=== PATIENT | female | born 2000 | race Caucasian/White ===

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

== ENCOUNTER 2022-05-08 12:40 | Emergency (ER) | payer OTHER, SELFPAY ==
--- NOTE | 2022-05-08 13:06 | ED.URI ---
HPI - URI/Sore Throat General Chief Complaint: Upper Respiratory Infection Stated Complaint: sorethroat Time Seen by Provider: 05/08/22 12:55 Source: patient Mode of arrival: ambulatory Limitations: no limitations History of Present Illness HPI Narrative: 22 yo F presents with c/o sore throat, bodyaches and chills for 2 days. Concerned she has strep throat. Denies N/V/D. No CP or SOB. 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 all systems reviewed and negative except as noted above. Related Data Allergies Allergy/AdvReac Type Severity Reaction Status Date / Time No Known Allergies Allergy Severe Verified 05/08/22 13:28 Review of Systems Review of Systems: CONSTITUTIONAL: Denies fever. Reports chills, or sweats. EYES: Denies visual changes, redness, or discharge. ENT: Denies rhinorrhea, congestion . Reports sore throat. Denies otalgia. CARDIOVASCULAR: Denies chest pain, palpitations, or edema. RESPIRATORY: Denies cough or dyspnea. GASTROINTESTINAL: Denies abdominal pain, nausea, vomiting, or diarrhea. GENITOURINARY: Denies dysuria or hematuria. SKIN: Denies rash or itching. MUSCULOSKELETAL: Denies back pain, joint pain. Reports myalgia. NEUROLOGIC: Denies headache, numbness, or weakness. PSYCHIATRIC: Denies anxiety or depression. All other systems reviewed are negative, except as documented in HPI. PMFSH Past Medical History Medical History Asthma Dental caries Surgical History Surgical History H/O foot surgery History of placement of ear tubes Family History Family History Other No significant family history Social History Social History Smoking status: Never smoker Alcohol intake: never Substance use: never Living arrangements: with family Gender identity (if verbalized by the patient): Female Comments At time of signature, agree with nursing past medical, surgical, social and family history. There is no relevant family history pertinent to the presenting complaint. Exam Narrative: GENERAL: This is a well-nourished, well-developed patient, in no apparent distress. HEAD: normocephalic, atraumatic. EYES: PERRL. Sclera clear/white. Vision is grossly intact. EARS: External ears normal, auditory canals clear and without drainage, TMs normal without perforation. Hearing grossly intact. NOSE: External nose normal with no obvious nasal discharge, nares without redness, no rhinorrhea. THROAT: Mucous membranes moist, erythematous and swollen. NECK: Neck supple, non-tender without lymphadenopathy, masses or thyromegaly. CARDIOVASCULAR: Regular rate and rhythm without murmurs, gallops, or rubs. RESPIRATORY: Clear to auscultation. Breath sounds equal bilaterally. No wheezes, rales, or rhonchi. SKIN: warm, Dry, intact with no suspicious lesions or rash, good texture and turgor. NEURO: awake, alert, and oriented to person, place and time. There were no obvious focal neurologic abnormalities. EXTREMITIES: No joint tenderness, effusion, or edema noted. Course Course Level of Care: Express Care Visit Vital Signs Vital signs: Vital Signs Temperature 37.7 C H 05/08/22 13:16 Pulse Rate 91 05/08/22 13:16 Respiratory Rate 18 05/08/22 13:16 Blood Pressure 116/70 05/08/22 13:16 Pulse Oximetry 100 05/08/22 13:16 Oxygen Delivery Room Air 05/08/22 13:16 Temperature 37.7 C H 05/08/22 13:16 Pulse Rate 91 05/08/22 13:16 Respiratory Rate 18 05/08/22 13:16 Blood Pressure 116/70 05/08/22 13:16 Pulse Oximetry 100 05/08/22 13:16 Oxygen Delivery Room Air 05/08/22 13:16 Reviewed MDM - URI/Sore Throat MDM Narrative Medical decision making narrative: Patient is aware of diagnosis, understands and agrees to treatment plan. Anticipatory guidance given. Patient agrees t
[2022-05-08 13:16] VITALS: BP 116/70; PULSE 91; RESP 18; TEMP 37.7; O2SAT 100
== END 2022-05-08 13:20 | disposition home or self-care (01) ==
PROVIDERS: Emergency Provider Nurse Practitioner Family; PCP Pediatrics Adolescent Medicine
DX: J02.0 Streptococcal pharyngitis (principal); J45.909 Unspecified asthma, uncomplicated
CPT/HCPCS: 87880; 99213; G0463

== ENCOUNTER 2022-05-30 13:38 | Emergency (ER) | payer OTHER, SELFPAY ==
[2022-05-30 13:45] VITALS: BP 112/74; PULSE 83; RESP 16; TEMP 36.7; O2SAT 99
--- NOTE | 2022-05-30 13:50 | ED.URI ---
HPI - URI/Sore Throat General Chief Complaint: Upper Respiratory Infection Stated Complaint: Sore Throat Time Seen by Provider: 05/30/22 13:50 Source: patient Mode of arrival: ambulatory Limitations: no limitations History of Present Illness HPI Narrative: 22-year-old female presents with sore throat, fatigue, chills starting yesterday. Patient is concerned that she has strep throat again. Was seen May 08 took 10 days of amoxicillin. Reports that she gets strep throat approximately 5 to 6 times a year. Denies nausea vomiting diarrhea. No chest pain or shortness breath. All systems reviewed and negative except as noted above. Related Data Allergies Allergy/AdvReac Type Severity Reaction Status Date / Time No Known Allergies Allergy Severe Verified 05/30/22 13:53 Review of Systems Review of Systems: CONSTITUTIONAL: Denies fever. Reports chills, fatigue and sweats. EYES: Denies visual changes, redness, or discharge. ENT: Denies rhinorrhea, congestion . Reports sore throat. Denies otalgia. CARDIOVASCULAR: Denies chest pain, palpitations, or edema. RESPIRATORY: Denies cough or dyspnea. GASTROINTESTINAL: Denies abdominal pain, nausea, vomiting, or diarrhea. GENITOURINARY: Denies dysuria or hematuria. SKIN: Denies rash or itching. MUSCULOSKELETAL: Denies back pain, joint pain, or myalgia. NEUROLOGIC: Denies headache, numbness, or weakness. PSYCHIATRIC: Denies anxiety or depression. All other systems reviewed are negative, except as documented in HPI. FORMERLY [facility], [facility]–1983 Past Medical History Medical History Asthma Dental caries Surgical History Surgical History H/O foot surgery History of placement of ear tubes Family History Family History Other No significant family history Social History Social History Smoking status: Never smoker Alcohol intake: never Substance use: never Living arrangements: with family Gender identity (if verbalized by the patient): Female Comments At time of signature, agree with nursing past medical, surgical, social and family history. There is no relevant family history pertinent to the presenting complaint. Exam Narrative: GENERAL: This is a well-nourished, well-developed patient, in no apparent distress. HEAD: normocephalic, atraumatic. EYES: PERRL. Sclera clear/white. Vision is grossly intact. EARS: External ears normal, auditory canals clear and without drainage, TMs normal without perforation. Hearing grossly intact. NOSE: External nose normal with no obvious nasal discharge, nares without redness, no rhinorrhea. THROAT: Mucous membranes moist, erythematous cyst who posterior pharynx with swelling. No exudates. NECK: Neck supple, non-tender without lymphadenopathy, masses or thyromegaly. CARDIOVASCULAR: Regular rate and rhythm without murmurs, gallops, or rubs. RESPIRATORY: Clear to auscultation. Breath sounds equal bilaterally. No wheezes, rales, or rhonchi. SKIN: warm, Dry, intact with no suspicious lesions or rash, good texture and turgor. NEURO: awake, alert, and oriented to person, place and time. There were no obvious focal neurologic abnormalities. EXTREMITIES: No joint tenderness, effusion, or edema noted. Course Course Level of Care: Express Care Visit Vital Signs Vital signs: Vital Signs Temperature 36.7 C 05/30/22 13:45 Pulse Rate 83 05/30/22 13:45 Respiratory Rate 16 05/30/22 13:45 Blood Pressure 112/74 05/30/22 13:45 Pulse Oximetry 99 05/30/22 13:45 Oxygen Delivery Room Air 05/30/22 13:45 Temperature 36.7 C 05/30/22 13:45 Pulse Rate 83 05/30/22 13:45 Respiratory Rate 16 05/30/22 13:45 Blood Pressure 112/74 05/30/22 13:45 Pulse Oximetry 99 05/30/22 13:45 Oxygen Delivery Room Air
== END 2022-05-30 14:05 | disposition home or self-care (01) ==
PROVIDERS: Emergency Provider Nurse Practitioner Family; PCP Pediatrics Adolescent Medicine
DX: J02.0 Streptococcal pharyngitis (principal); J45.909 Unspecified asthma, uncomplicated
CPT/HCPCS: 87880; 99213; G0463

== ENCOUNTER 2022-06-22 16:47 | Emergency (ER) | payer OTHER, SELFPAY ==
[2022-06-22] VITALS (28 sets, daily range): BP systolic 100–143; BP diastolic 57–92; PULSE 59–80; RESP 15–16; TEMP 37.2; O2SAT 96–100
--- NOTE | ~2022-06-22 | CT_ITS ---
EXAMINATION: CT brain wo con DATE: 06/22/2022 17:28 INDICATION: Dizziness. Headache. TECHNIQUE: Computed tomography (CT) of the head was performed without intravenous contrast. The mA wa s adjusted according to patient size. Iterative reconstruction technique was employed. The dose-lengt h product was 529.67 mGy-cm. COMPARISON: None FINDINGS: There is no intracranial hemorrhage, acute infarction, or abnormal intracranial mass lesion . The ventricles are normal in size. There is mucosal thickening in the paranasal sinuses. The orbits are normal. The mastoid air cells are normal. IMPRESSION: 1. Normal brain. Reviewed, dictated and finalized at location E. IMPRESSION: 1. Normal brain.
--- NOTE | 2022-06-22 17:11 | PC.NURSE ---
Patient ambulatory to restroom and from the restroom back to ED room 4 without difficulty.
--- NOTE | 2022-06-22 17:15 | ED.DIZZY ---
HPI - Dizziness General Chief Complaint: Dizziness Stated Complaint: lightheaded/dizzy Time Seen by Provider: 06/22/22 16:58 Source: patient Mode of arrival: ambulatory Limitations: no limitations History of Present Illness HPI Narrative: Patient is a 22 y/o female who presents to the ED with c/o dizziness/lightheadedness. Patient reports having dizziness, described as feeling lightheaded and as though the room is spinning intermittently for the last 2 days. She states sx's are worse with changing positions, walking, and driving. She c/o difficulty focusing which presents as occasionally blurry vision, frontal FERRIS, nausea, and ear fullness. She feels as though she is dehydrated. She has not taken anything for her FERRIS. Denies syncope, focal weakness, vomiting, abdominal pain, neck pain, fevers, CP, SOB. Related Data Allergies Allergy/AdvReac Type Severity Reaction Status Date / Time No Known Allergies Allergy Severe Verified 05/30/22 13:53 Review of Systems Review of Systems: CONSTITUTIONAL: Denies fever, chills, or sweats. EYES: See HPI. CARDIOVASCULAR: Denies chest pain. RESPIRATORY: Denies dyspnea. GASTROINTESTINAL: See HPI. MUSCULOSKELETAL: Denies back pain, neck pain. NEUROLOGIC: See HPI. All systems reviewed & are unremarkable except as noted in HPI and below PMFSH Past Medical History Medical History Asthma Dental caries Surgical History Surgical History H/O foot surgery History of placement of ear tubes Family History Family History Other No significant family history Social History Social History Smoking status: Never smoker Alcohol intake: never Substance use: never Living arrangements: with family Gender identity (if verbalized by the patient): Female Exam Narrative: GENERAL: Well appearing, well-nourished, non-toxic, in no acute distress. HEAD: Normocephalic, atraumatic. EYES: PERRL/EOMI, conjunctivae clear bilaterally. No nystagmus. EARS: Some fluid behind L TM, no erythema or bulging of TM, no swelling/erythema of EAC. R TM somewhat obscured by cerumen in canal. No evidence of TM erythema/bulging. NECK: Supple. No adenopathy, no masses. No meningeal signs. RESPIRATORY: Airway patent, respirations nonlabored. Clear to auscultation bilaterally, no rales, rhonchi, wheezing. CARDIOVASCULAR: Regular rate and rhythm without murmurs, rubs, or gallops. Radial pulses 2+ and equal bilaterally. MUSCULOSKELETAL: Moves all extremities. Strength/ROM intact without gross deformities. SKIN: Warm, dry, normal color. No rashes. NEURO: A&O X3. Speech clear. Follows commands. CN II-XII intact. Sensation grossly intact. Steady gait. No ataxic movements. Strength 5/5 in upper and lower extremities bilaterally. Tobm-di-hfce and mziksj-vi-oktq testing intact bilaterally. No pronator drift. PSYCHIATRIC: Appropriate mood and affect. Normal interaction. Course Vital Signs Vital signs: Vital Signs Temperature 98.9 F 06/22/22 16:49 Pulse Rate 80 06/22/22 16:49 Respiratory Rate 15 06/22/22 16:49 Blood Pressure 128/77 06/22/22 16:49 Pulse Oximetry 100 06/22/22 16:49 Oxygen Delivery Room Air 06/22/22 16:49 Temperature 98.9 F 06/22/22 16:49 Pulse Rate 68 06/22/22 19:43 Respiratory Rate 16 06/22/22 19:43 Blood Pressure 117/71 06/22/22 19:43 Pulse Oximetry 99 06/22/22 19:43 Oxygen Delivery Room Air 06/22/22 16:49 MDM - Dizziness MDM Narrative Medical decision making narrative: Patient presented to ED with c/o dizziness/lightheadedness X 2d. Vague neurologic sx's. VSS upon arrival. Patient neurologically intact upon exam. No focal deficits. No significant orthostatic hypotension. Fluids, meclizine, tylenol, zofran given. CT b
[2022-06-22 18:00] LABS: Basophils Absolute Auto 0.1 K/mm3 (0.0-0.1); Basophils Percent Auto 0.7 % (0.2-1.2); Eosinophils Absolute Auto 0.2 K/mm3 (0-0.3); Eosinophils Percent Auto 2.2 % (0-4.4); Hematocrit 37.8 % (37.0-47.0); Hemoglobin 12.7 g/dL (12.0-15.0); Immature Granulocyte Absolute 0.03 K/mm3 (0.00-0.031); Immature Granulocyte Percent A 0.3 % (0-0.5); Lymphocytes Absolute Auto 2.23 K/mm3 (0.9-3.2); Lymphocytes Percent Auto 23.7 % (18.3-44.2); Mean Corpuscular HGB Conc 33.6 g/dl (32-36); Mean Corpuscular Hemoglobin 29.8 pg (26-34); Mean Corpuscular Volume 88.7 fl (80-100); Mean Platelet Volume 9.5 fl (7.4-10.4); Monocytes Absolute Auto 0.6 K/mm3 (0.1-0.6); Monocytes Percent Auto 6.4 % (2.6-8.5); Neutrophils Absolute Auto 6.3 K/mm3 (1.3-6.7); Neutrophils Percent Auto 66.7 % (45.5-73.1); Platelet Count Result 239 k/mm3 (150-375); Red Blood Count 4.26 M/mm3 (4.2-5.4); Red Cell Distribution Width 12.2 % (11.5-14.5); White Blood Count 9.4 K/mm3 (4.5-10.0)
[2022-06-22 18:02] LABS: Appearance Urine Clear (Clear); Bilirubin Urine Negative (Negative); Blood Urine Negative (Negative); Color Urine Yellow (Yellow); Glucose Urine UA Negative (Negative); Ketones Urine Negative (Negative); Leukocyte Esterase Ur Negative LEU/UL (Negative); Nitrate Urine Negative (Negative); Protein Urine Negative (Negative); Specific Grav Ur 1.017 (1.001-1.035); Urobilinogen Urine 0.2 mg/dL (<2.0)
[2022-06-22 18:05] LABS: Add Urine Microscopic? NO
[2022-06-22] MEDS: MECLIZINE HCL 25 MG TABLET PO (18:09)
[2022-06-22] MEDS: SODIUM CHLORIDE 0.9% IV 1,000 ML 999 ML IV CONT (18:09)
[2022-06-22] MEDS: ACETAMINOPHEN 500 MG TABLET 1000 MG PO (18:09)
[2022-06-22] MEDS: ONDANSETRON INJ 4 MG/2 ML VIAL IV PUSH (18:09)
[2022-06-22 18:11] LABS: Alanine Aminotransferase 23 U/L (6-35); Albumin Level 4.6 g/dL (3.5-5.1); Alkaline Phosphatase 68 U/L (38-126); Anion Gap 9 mmol/L (8-16); Aspartate Amino Transferase 28 U/L (14-36); Bilirubin,Total 0.5 mg/dL (0.2-1.3); Blood Urea Nitrogen 8 mg/dL (7-17); Carbon Dioxide 26 mmol/L (22-30); Chloride 105 mmol/L (98-107); Estimated CRCL calculation 119 ml/min; Estimated Glomerular Filt Rate > 60; Glucose 84 mg/dL (65-110); Potassium 3.8 mmol/L (3.4-5.0); Sodium 140 mmol/L (137-145)
== END 2022-06-22 19:45 | disposition home or self-care (01) ==
PROVIDERS: Emergency Provider Physician Assistant; PCP Pediatrics Adolescent Medicine
DX: R42 Dizziness and giddiness (principal); R51.9 Headache, unspecified; J45.909 Unspecified asthma, uncomplicated
CPT/HCPCS: 36415; 70450; 80053; 81003; 85025; 96361; 96374; 99284; A9270; J2405; J7030

== ENCOUNTER 2022-07-06 12:07 | Emergency (ER) | payer OTHER, SELFPAY ==
[2022-07-06 12:13] VITALS: BP 125/69; PULSE 60; RESP 16; TEMP 36.6; O2SAT 99
--- NOTE | 2022-07-06 12:46 | ED.GENADULT ---
HPI - General Adult General Chief complaint: Allergic Reaction Stated complaint: Allergic Reaction Time Seen by Provider: 07/06/22 12:38 Source: patient and RN notes reviewed Mode of arrival: ambulatory Limitations: no limitations History of Present Illness HPI narrative: Patient presents today with a rash to her bilateral eyelids and right cheek that she noticed this morning. She believes it is due to her shampoo and conditioner. Last week she used it for the 1st time and had some itching her face, so she stopped using it for 3-4 days. She used it again for the 2nd time yesterday and now has a rash to her face. She does not have a rash or itching to her scalp. Denies shortness of breath, difficulty swallowing, swelling to her lips or tongue, scratchiness to her throat. She has not tried any gfsa-rpv-brzzcry treatment prior to arrival. Related Data Home Medications Medication Instructions Recorded Confirmed No Home Medications 07/06/22 07/06/22 Allergies Allergy/AdvReac Type Severity Reaction Status Date / Time No Known Allergies Allergy Severe Verified 07/06/22 12:20 Review of Systems Review of Systems: CONSTITUTIONAL: Denies body aches, fever, chills, or sweats. EYES: Denies visual changes, redness, or discharge. ENT: Denies rhinorrhea, congestion, sore throat, or otalgia. CARDIOVASCULAR: Denies chest pain, palpitations, or edema. RESPIRATORY: Denies cough or dyspnea. GASTROINTESTINAL: Denies abdominal pain, nausea, vomiting, or diarrhea. GENITOURINARY: Denies dysuria or hematuria. SKIN: + pruritic rash to face MUSCULOSKELETAL: Denies back pain, joint pain, or myalgia. NEUROLOGIC: Denies headache, numbness, tingling, or weakness. PSYCH: Denies depression or anxiety. [facility] Past Medical History Medical History Asthma Dental caries Surgical History Surgical History H/O foot surgery History of placement of ear tubes Family History Family History Other No significant family history Social History Social History Smoking status: Never smoker Alcohol intake: never Substance use: never Living arrangements: with family Gender identity (if verbalized by the patient): Female Comments At time of signature, I have reviewed and agree with nursing past medical, surgical, social and family history unless otherwise noted. Please see nursing chart for further information. There is no relevant family history pertinent to the presenting complaint Exam Narrative: GENERAL: Well-appearing, well-nourished, and in no acute distress. HEAD: Normocephalic, atraumatic. EYES: EOMI. PERRL. No redness or drainage. Conjunctivae normal. ENT: Mucous membranes pink and moist. Nares clear. No rhinorrhea. TMs normal bilaterally. Throat normal. Uvula midline. NECK: Normal AROM. CHEST: No respiratory distress. Clear to auscultation. HEART: Regular rate and rhythm. No murmur appreciated. Normal peripheral pulses. EXTREMITIES: Normal range of motion. No edema. SKIN: Warm, dry.. Capillary refill normal. Normal skin turgor. Few large hives to the right cheek and 1 hive to each upper eyelid, causing some swelling. NEURO: No focal deficits. Alert and oriented x3. Gait steady. PSYCH: Normal affect. No signs of depression or anxiety. Course Course Level of Care: Express Care Visit Vital Signs Vital signs: Vital Signs Temperature 97.8 F 07/06/22 12:13 Pulse Rate 60 07/06/22 12:13 Respiratory Rate 16 07/06/22 12:13 Blood Pressure 125/69 07/06/22 12:13 Pulse Oximetry 99 07/06/22 12:13 Oxygen Delivery Room Air 07/06/22 12:13 Temperature 97.8 F 07/06/22 12:13 Pulse Rate 60 07/06/22 12:13 Respiratory Rate 16 07/06/22 12:13 Blood P
== END 2022-07-06 13:15 | disposition home or self-care (01) ==
PROVIDERS: Emergency Provider Nurse Practitioner; PCP Pediatrics Adolescent Medicine
DX: L50.9 Urticaria, unspecified (principal); J45.909 Unspecified asthma, uncomplicated
CPT/HCPCS: 96372; 99213; G0463; J1100

== ENCOUNTER 2022-08-01 19:57 | Emergency (ER) | payer OTHER, SELFPAY ==
--- NOTE | 2022-08-01 20:08 | ED.FEMALEGU ---
HPI - Female Genitourinary General Chief complaint: Urogenital-Female Stated complaint: uti symptoms Source: patient and RN notes reviewed History of Present Illness HPI Narrative: 22 yo F Presents to urgent care stating she knows she has a UTI. Pt states she has been having burning with urination and urinary urgency and frequency x 3 days. Pt states she was working out [employer] and she had to leave her workout multiple times b/c she had to urinate. Pt reports some nausea the last couple days. Denies any vomiting. Pt reports some SOB when asked; stating she is noticing she has to take a deep breath at work sometimes when talking on the phone. Pt reports hx of asthma. Denies any coughing, congestion, fevers, chills, abdominal pain, chest pain, or back pain. Pt did take AZO today for her symptoms. Related Data Allergies Allergy/AdvReac Type Severity Reaction Status Date / Time No Known Allergies Allergy Severe Verified 08/01/22 20:15 Review of Systems Review of Systems: Pertinent positives and pertinent negatives per HPI. PMFSH Past Medical History Medical History Asthma Dental caries Surgical History Surgical History H/O foot surgery History of placement of ear tubes Family History Family History Other No significant family history Social History Social History Smoking status: Never smoker Alcohol intake: never Substance use: never Living arrangements: with family Gender identity (if verbalized by the patient): Female Comments At the time of my signature, I reviewed and agree with the nursing past medical, surgical, social, and family history. There is no relevant family history pertinent to the patient complaint. Exam Narrative: GENERAL: This is a well-nourished, well-developed patient, in no apparent distress. HEAD: normocephalic, atraumatic. EYES: Sclera clear/white. Vision is grossly intact. EARS: External ears normal, auditory canals clear and without drainage, TMs normal without perforation. Hearing grossly intact. NOSE: External nose normal with no obvious nasal discharge, nares without redness, no rhinorrhea. THROAT: Mucous membranes moist, posterior pharynx clear. NECK: Neck supple, non-tender without lymphadenopathy, masses or thyromegaly. CARDIOVASCULAR: Regular rate and rhythm without murmurs, gallops, or rubs. RESPIRATORY: Clear to auscultation. Breath sounds equal bilaterally. No wheezes, rales, or rhonchi. GASTROINTESTINAL: Abdomen soft, non-tender, nondistended. Bowel sounds are active. No hepato-splenomegaly, or palpable masses. No guarding. SKIN: warm, intact with no suspicious lesions or rash, good texture and turgor. NEURO: awake, alert, and oriented to person, place and time. There were no obvious focal neurologic abnormalities. EXTREMITIES: No clubbing, cyanosis, or edema. No joint tenderness, effusion, or edema noted. BACK: Nontender without deformity or crepitus. No flank tenderness. Course Course Level of Care: Express Care Visit Vital Signs Vital signs: Reviewed MDM - Female Genitourinary MDM Narrative Medical decision making narrative: We will send a urine culture off to the lab; if the culture identifies an organism that the prescribed antibiotic will not treat, you will receive a phone call from an urgent care staff member and an appropriate antibiotic will be prescribed. -Your symptoms should begin to improve within a day of starting antibiotics. But you should finish all the antibiotic pills you get. Otherwise your infection might come back. -Also recommend: drink more fluid. It might help flush out germs, and it does no harm -Tylenol/ibuprofen as needed for pain -Follow-up with your primary care provider for urine recheck
[2022-08-01 20:09] VITALS: BP 133/65; PULSE 106; RESP 18; TEMP 36.8; O2SAT 99
== END 2022-08-01 20:18 | disposition home or self-care (01) ==
PROVIDERS: Emergency Provider Nurse Practitioner Family; PCP Pediatrics Adolescent Medicine
DX: N39.0 Urinary tract infection, site not specified (principal); J45.909 Unspecified asthma, uncomplicated
CPT/HCPCS: 81003; 87077; 87086; 87186; 99213; G0463

== ENCOUNTER 2022-08-23 16:52 | Emergency (ER) | payer OTHER, SELFPAY ==
[2022-08-23 17:12] VITALS: BP 140/74; PULSE 72; RESP 18; TEMP 37; O2SAT 100
--- NOTE | 2022-08-23 17:37 | ED.FEMALEGU ---
HPI - Female Genitourinary General Chief complaint: Urogenital-Female Stated complaint: vaginal discharge and itching Time Seen by Provider: 08/23/22 17:28 Source: patient and RN notes reviewed Mode of arrival: ambulatory Limitations: no limitations History of Present Illness HPI Narrative: Patient presents today with a 2 day history of external vulvar itching, mild white vaginal discharge, and mild dysuria. States that last weekend she spent [place] the [employer] she was wearing a wet swimming suit most of the time. Denies frequency, urgency, hematuria. States she did have unprotected intercourse with a new partner 2 days ago. Has an appointment with her OBGYN next week. Related Data Allergies Allergy/AdvReac Type Severity Reaction Status Date / Time No Known Allergies Allergy Severe Verified 08/23/22 17:21 Review of Systems Review of Systems: CONSTITUTIONAL: Denies body aches, fever, chills, or sweats. EYES: Denies visual changes, redness, or discharge. ENT: Denies rhinorrhea, congestion, sore throat, or otalgia. CARDIOVASCULAR: Denies chest pain, palpitations, or edema. RESPIRATORY: Denies cough or dyspnea. GASTROINTESTINAL: Denies abdominal pain, nausea, vomiting, or diarrhea. GENITOURINARY: Denies hematuria.+ vulvar itching, white discharge, dysuria SKIN: Denies rash, itching, or wounds. MUSCULOSKELETAL: Denies back pain, joint pain, or myalgia. NEUROLOGIC: Denies headache, numbness, tingling, or weakness. PSYCH: Denies depression or anxiety. PMFSH Past Medical History Medical History Asthma Dental caries Surgical History Surgical History H/O foot surgery History of placement of ear tubes Family History Family History Other No significant family history Social History Social History Smoking status: Never smoker Alcohol intake: never Substance use: never Living arrangements: with family Gender identity (if verbalized by the patient): Female Comments At time of signature, I have reviewed and agree with nursing past medical, surgical, social and family history unless otherwise noted. Please see nursing chart for further information. There is no relevant family history pertinent to the presenting complaint Exam Narrative: GENERAL: Well-appearing, well-nourished, and in no acute distress. HEAD: Normocephalic, atraumatic. EYES: EOMI. No redness or drainage. Conjunctivae normal. ENT: Mucous membranes pink and moist. NECK: Normal AROM. CHEST: No respiratory distress. : deferred EXTREMITIES: Normal range of motion. No edema. SKIN: Warm, dry, no rash. Capillary refill normal. Normal skin turgor. NEURO: No focal deficits. Alert and oriented x3. Gait steady. PSYCH: Normal affect. No signs of depression or anxiety. Course Course Level of Care: Express Care Visit Vital Signs Vital signs: Vital Signs Temperature 98.6 F 08/23/22 17:12 Pulse Rate 72 08/23/22 17:12 Respiratory Rate 18 08/23/22 17:12 Blood Pressure 140/74 08/23/22 17:12 Pulse Oximetry 100 08/23/22 17:12 Oxygen Delivery Room Air 08/23/22 17:12 Temperature 98.6 F 08/23/22 17:12 Pulse Rate 72 08/23/22 17:12 Respiratory Rate 18 08/23/22 17:12 Blood Pressure 140/74 08/23/22 17:12 Pulse Oximetry 100 08/23/22 17:12 Oxygen Delivery Room Air 08/23/22 17:12 Reviewed. Pt has been instructed to follow up with her PCP regarding her elevated blood pressure today. MDM - Female Genitourinary MDM Narrative Medical decision making narrative: Due to patient's symptoms, I will treat her for a vaginal yeast infection with Diflucan. Considered testing for gonorrhea, chlamydia, and Trichomonas, but as patient just had unprotected intercourse a few da
== END 2022-08-23 17:46 | disposition home or self-care (01) ==
PROVIDERS: Emergency Provider Nurse Practitioner; PCP Pediatrics Adolescent Medicine
DX: B37.31 Acute candidiasis of vulva and vagina (principal); J45.909 Unspecified asthma, uncomplicated
CPT/HCPCS: 99213; G0463

== ENCOUNTER 2022-11-04 18:35 | Emergency (ER) | payer OTHER, SELFPAY ==
[2022-11-04 18:46] VITALS: BP 124/66; PULSE 67; RESP 18; TEMP 36.5; O2SAT 97
--- NOTE | 2022-11-04 18:48 | ED.SKABFB ---
HPI - Skin/Abscess/Foreign Bdy General Chief complaint: Skin/Abscess/Foreign Body Stated complaint: Rash Time Seen by Provider: 11/04/22 18:48 Source: patient Mode of arrival: ambulatory Limitations: no limitations History of Present Illness HPI narrative: 22-year-old female presents with itchy lesion to left dillard and right thigh. Reports lesion to left dillard started last week. Noticed lesion to right thigh this morning. States she has never had a rash similar to this. All systems reviewed and negative except as noted above. Related Data Allergies Allergy/AdvReac Type Severity Reaction Status Date / Time No Known Allergies Allergy Severe Verified 11/04/22 18:37 Review of Systems Review of Systems: CONSTITUTIONAL: Denies fever, chills, or sweats. EYES: Denies visual changes, redness, or discharge. ENT: Denies rhinorrhea, congestion, sore throat, or otalgia. CARDIOVASCULAR: Denies chest pain, palpitations, or edema. RESPIRATORY: Denies cough or dyspnea. GASTROINTESTINAL: Denies abdominal pain, nausea, vomiting, or diarrhea. GENITOURINARY: Denies dysuria or hematuria. SKIN: reports lesion to L dillard and R thigh. MUSCULOSKELETAL: Denies back pain, joint pain, or myalgia. NEUROLOGIC: Denies headache, numbness, or weakness. PSYCHIATRIC: Denies anxiety or depression. All other systems reviewed are negative, except as documented in HPI. [facility] Past Medical History Medical History Asthma Dental caries Surgical History Surgical History H/O foot surgery History of placement of ear tubes Family History Family History Other No significant family history Social History Social History Smoking status: Never smoker Alcohol intake: never Substance use: never Living arrangements: with family Gender identity (if verbalized by the patient): Female Comments At time of signature, agree with nursing past medical, surgical, social and family history. There is no relevant family history pertinent to the presenting complaint. Exam Narrative: GENERAL: This is a well-nourished, well-developed patient, in no apparent distress. HEAD: normocephalic, atraumatic. EYES: PERRL. Sclera clear/white. Vision is grossly intact. EARS: External ears normal NOSE: External nose normal NECK: Neck supple, non-tender without lymphadenopathy, masses or thyromegaly. CARDIOVASCULAR: Regular rate and rhythm without murmurs, gallops, or rubs. RESPIRATORY: Clear to auscultation. Breath sounds equal bilaterally. No wheezes, rales, or rhonchi. SKIN: warm, Dry, intact with no suspicious rash, good texture and turgor. circular lesion with erythematous raised border and central clearing to R anterior thigh and L dillard. NEURO: awake, alert, and oriented to person, place and time. There were no obvious focal neurologic abnormalities. EXTREMITIES: No joint tenderness, effusion, or edema noted. Course Course Level of Care: Express Care Visit Vital Signs Vital signs: Vital Signs Oxygen Delivery Room Air 11/04/22 18:45 Temperature 36.5 C 11/04/22 18:46 Pulse Rate 67 11/04/22 18:46 Respiratory Rate 18 11/04/22 18:46 Blood Pressure 124/66 11/04/22 18:46 Pulse Oximetry 97 11/04/22 18:46 Oxygen Delivery Room Air 11/04/22 18:46 Reviewed MDM - Skin/Abscess/Foreign Bdy MDM Narrative Medical decision making narrative: Patient is aware of diagnosis, understands and agrees to treatment plan. Anticipatory guidance given. Patient agrees to follow-up as directed and is aware of reasons to seek care at the emergency department. Portions of this record may have been created with voice recognition software Discharge Plan Discharge Clinical Impression: Fungal s
== END 2022-11-04 19:04 | disposition home or self-care (01) ==
PROVIDERS: Emergency Provider Nurse Practitioner Family; PCP Pediatrics Adolescent Medicine
DX: B36.9 Superficial mycosis, unspecified (principal); J45.909 Unspecified asthma, uncomplicated
CPT/HCPCS: 99213; G0463

== ENCOUNTER 2023-07-03 15:54 | Emergency (ER) | payer OTHER, SELFPAY ==
[2023-07-03 16:05] VITALS: BP 118/52; PULSE 64; RESP 18; TEMP 36.6; O2SAT 97
[2023-07-03 16:06] VITALS: BP 118/52; PULSE 64; RESP 18; TEMP 36.6; O2SAT 97
--- NOTE | 2023-07-03 16:18 | ED.URI ---
HPI - URI/Sore Throat General Chief Complaint: Upper Respiratory Infection Stated Complaint: Cold symptoms Time Seen by Provider: 07/03/23 16:13 Source: patient and RN notes reviewed Mode of arrival: ambulatory Limitations: no limitations History of Present Illness HPI Narrative: Patient presents today complaining of a 2-3 day history of sore throat and bilateral ear pain and itching. Reports she started with some fatigue today. Denies congestion, rhinorrhea, fever. Currently rates her pain 7/10 and has tried no medication for symptoms prior to arrival. States she drank a smoothie prior to coming to urgent care today and this has helped with her sore throat. Related Data Home Medications Medication Instructions Recorded Confirmed No Home Medications 07/03/23 07/03/23 Allergies Allergy/AdvReac Type Severity Reaction Status Date / Time No Known Allergies Allergy Severe Verified 07/03/23 16:06 Review of Systems Review of Systems: CONSTITUTIONAL: Denies body aches, fever, chills, or sweats. EYES: Denies visual changes, redness, or discharge. ENT: Denies rhinorrhea, congestion.+ sore throat, ear pain CARDIOVASCULAR: Denies chest pain, palpitations, or edema. RESPIRATORY: Denies cough or dyspnea. GASTROINTESTINAL: Denies abdominal pain, nausea, vomiting, or diarrhea. GENITOURINARY: Denies dysuria or hematuria. SKIN: Denies rash, itching, or wounds. MUSCULOSKELETAL: Denies back pain, joint pain, or myalgia. NEUROLOGIC: Denies headache, numbness, tingling, or weakness. PSYCH: Denies depression or anxiety. [facility] Past Medical History Medical History Asthma Dental caries Surgical History Surgical History H/O foot surgery History of placement of ear tubes Family History Family History Other No significant family history Social History Social History Smoking status: Never smoker Alcohol intake: never Substance use: never Living arrangements: with family Gender identity (if verbalized by the patient): Female Comments At time of signature, I have reviewed and agree with nursing past medical, surgical, social and family history unless otherwise noted. Please see nursing chart for further information. There is no relevant family history pertinent to the presenting complaint Exam Narrative: GENERAL: Well-appearing, well-nourished, and in no acute distress. HEAD: Normocephalic, atraumatic. EYES: EOMI. No redness or drainage. Conjunctivae normal. ENT: Mucous membranes pink and moist. Nares clear. No rhinorrhea. TMs normal bilaterally. Throat mildly erythematous without edema or exudate. Uvula midline. NECK: Normal AROM. Supple. No lymphadenopathy. CHEST: No respiratory distress. Clear to auscultation. HEART: Regular rate and rhythm. No murmur appreciated. EXTREMITIES: Normal range of motion. No edema. SKIN: Warm, dry, no rash. Capillary refill normal. Normal skin turgor. NEURO: No focal deficits. Alert and oriented x3. Gait steady. PSYCH: Normal affect. No signs of depression or anxiety. Course Course Level of Care: Express Care Visit Vital Signs Vital signs: Vital Signs Temperature 97.9 F 07/03/23 16:05 Pulse Rate 64 07/03/23 16:05 Respiratory Rate 18 07/03/23 16:05 Blood Pressure 118/52 L 07/03/23 16:05 Pulse Oximetry 97 07/03/23 16:05 Oxygen Delivery Room Air 07/03/23 16:05 Temperature 97.9 F 07/03/23 16:06 Pulse Rate 64 07/03/23 16:06 Respiratory Rate 18 07/03/23 16:06 Blood Pressure 118/52 L 07/03/23 16:06 Pulse Oximetry 97 07/03/23 16:06 Oxygen Delivery Room Air 07/03/23 16:06 Reviewed MDM - URI/Sore Throat MDM Narrative Medical decision making narrative: Rapid strep negative
== END 2023-07-03 16:26 | disposition home or self-care (01) ==
PROVIDERS: Emergency Provider Nurse Practitioner; Referring Provider Emergency Medicine
DX: J02.9 Acute pharyngitis, unspecified (principal); J45.909 Unspecified asthma, uncomplicated
CPT/HCPCS: 87081; 87880; 99213; G0463

== ENCOUNTER 2023-07-13 10:25 | Emergency (ER) | payer OTHER, SELFPAY ==
[2023-07-13 10:33] VITALS: BP 120/80; PULSE 67; RESP 18; TEMP 36.3; O2SAT 100
--- NOTE | 2023-07-13 10:48 | ED.FEMALEGU ---
HPI - Female Genitourinary General Chief complaint: Urogenital-Female Stated complaint: vag discharge Time Seen by Provider: 07/13/23 10:41 Source: patient and RN notes reviewed Mode of arrival: ambulatory Limitations: no limitations History of Present Illness HPI Narrative: Patient presents today complaining of a 3 day history of vaginal itching and odor, vaginal discharge, and dyspareunia. She last had unprotected intercourse approximately 1 month ago. Does have history of chlamydia and believe she may have it again, although she has not been notified but any partner that they have tested positive. Related Data Allergies Allergy/AdvReac Type Severity Reaction Status Date / Time No Known Allergies Allergy Severe Verified 07/13/23 10:37 Review of Systems Review of Systems: CONSTITUTIONAL: Denies body aches, fever, chills, or sweats. EYES: Denies visual changes, redness, or discharge. ENT: Denies rhinorrhea, congestion, sore throat, or otalgia. CARDIOVASCULAR: Denies chest pain, palpitations, or edema. RESPIRATORY: Denies cough or dyspnea. GASTROINTESTINAL: Denies abdominal pain, nausea, vomiting, or diarrhea. GENITOURINARY: + vaginal discharge, odor, dyspareunia. SKIN: Denies rash, itching, or wounds. MUSCULOSKELETAL: Denies back pain, joint pain, or myalgia. NEUROLOGIC: Denies headache, numbness, tingling, or weakness. PSYCH: Denies depression or anxiety. [facility] Past Medical History Medical History Asthma Dental caries Surgical History Surgical History H/O foot surgery History of placement of ear tubes Family History Family History Other No significant family history Social History Social History Smoking status: Never smoker Alcohol intake: never Substance use: never Living arrangements: with family Gender identity (if verbalized by the patient): Female Comments At time of signature, I have reviewed and agree with nursing past medical, surgical, social and family history unless otherwise noted. Please see nursing chart for further information. There is no relevant family history pertinent to the presenting complaint Exam Narrative: GENERAL: Well-appearing, well-nourished, and in no acute distress. HEAD: Normocephalic, atraumatic. EYES: EOMI. No redness or drainage. Conjunctivae normal. ENT: Mucous membranes pink and moist. NECK: Normal AROM. CHEST: No respiratory distress. : Exam deferred by patient EXTREMITIES: Normal range of motion. No edema. SKIN: Warm, dry, no rash. Capillary refill normal. Normal skin turgor. NEURO: No focal deficits. Alert and oriented x3. Gait steady. PSYCH: Normal affect. No signs of depression or anxiety. Course Course Level of Care: Express Care Visit Vital Signs Vital signs: Vital Signs Temperature 97.3 F L 07/13/23 10:33 Pulse Rate 67 07/13/23 10:33 Respiratory Rate 18 07/13/23 10:33 Blood Pressure 120/80 07/13/23 10:33 Pulse Oximetry 100 07/13/23 10:33 Oxygen Delivery Room Air 07/13/23 10:33 Temperature 97.3 F L 07/13/23 10:33 Pulse Rate 67 07/13/23 10:33 Respiratory Rate 18 07/13/23 10:33 Blood Pressure 120/80 07/13/23 10:33 Pulse Oximetry 100 07/13/23 10:33 Oxygen Delivery Room Air 07/13/23 10:33 Reviewed MDM - Female Genitourinary MDM Narrative Medical decision making narrative: Patient will be tested for gonorrhea and chlamydia and received prescription for doxycycline. She has received a dose of Rocephin here today. She declines testing for Trichomonas. States she will follow-up with her PCP. Anticipatory guidance given. Differential Diagnosis Differential diagnosis: Likely trichomoniasis, cervicitis, vaginitis and other (Gonorrhea, c
[2023-07-13] MEDS: cefTRIAXone 500 MG, LIDOCAINE HCL 1% LOCAL INJ 1 ML IM (11:00)
[2023-07-13 18:41] LABS: Chlamydia trachomatis NOT DETECTED (NOT DETECTE); Neisseria gonorrhoeae PCR NOT DETECTED (NOT DETECTE)
== END 2023-07-13 11:07 | disposition home or self-care (01) ==
PROVIDERS: Emergency Provider Nurse Practitioner
DX: N89.8 Other specified noninflammatory disorders of vagina (principal); N94.10 Unspecified dyspareunia; J45.909 Unspecified asthma, uncomplicated
CPT/HCPCS: 87491; 87591; 96372; 99214; G0463; J0696

== ENCOUNTER 2023-09-07 03:45 | Emergency (ER) | payer OTHER, SELFPAY ==
[2023-09-07 03:55] VITALS: BP 123/71; PULSE 79; RESP 14; TEMP 36.7; O2SAT 99
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
[2023-09-07] MEDS: ACETAMINOPHEN 500 MG TABLET 1000 MG PO (04:46)
== END 2023-09-07 04:50 | disposition home or self-care (01) ==
LOC: ANHED 04:36
PROVIDERS: Emergency Provider Emergency Medicine
DX: S09.90XA Unspecified injury of head, initial encounter (principal); V49.40XA Driver injured in collision with unspecified motor vehicles in traffic accident, initial encounter
CPT/HCPCS: 99283; A9270

== ENCOUNTER 2024-11-29 18:31 | Emergency (ER) | payer BC, SELFPAY ==
--- NOTE | 2024-11-29 18:33 | ED.URI ---
HPI - URI/Sore Throat General Chief Complaint: Upper Respiratory Infection Stated Complaint: URI Time Seen by Provider: 11/29/24 18:33 Source: patient Mode of arrival: ambulatory Limitations: no limitations History of Present Illness HPI Narrative: Vikki is a 24 year old female patient presenting to the clinic today with c/o cough and nasal congestion x4 days. She reports coughing up clear phlegm. History of asthma. Has been using her air supra inhaler that has been helping. States she does feel short of breath. No fevers, chills, body aches. Has not taking any medications to treat her symptoms Related Data Home Medications ?Medication ?Instructions ?Recorded ?Confirmed ?Last Taken ?Type albuterol 90 mcg-budesonide 80 2 inh inhalation TID PRN shortness 11/29/24 Unknown History mcg/actuation HFA aerosol inhaler of breath (Airsupra) Allergies Allergy/AdvReac Type Severity Reaction Status Date / Time No Known Allergies Allergy Severe Verified 11/29/24 18:45 Review of Systems Review of Systems: Pertinent positives per HPI. Patient denies any fever, chills, rash, headache, visual changes, dizziness, chest pain, palpitations, nausea, vomiting, diarrhea, constipation, abdominal pain, or any urinary issues. [facility] Past Medical History Medical History Asthma Dental caries Surgical History Surgical History History of placement of ear tubes H/O foot surgery Family History Family History Other No significant family history Social History Social History Smoking status: Never smoker Alcohol intake: never Substance use: never Living arrangements: with family Gender identity (if verbalized by the patient): Female Comments At the time of my signature, I reviewed and agree with the nursing past medical, surgical, social, and family history. There is no relevant family history pertinent to the patient complaint. Exam Narrative: General: Well-developed, well nourished, in no apparent distress Head: Normocephalic, atraumatic Eyes: Pupils equally round and reactive to light bilaterally, EOM intact, sclera and conjunctive clear, no discharge, lids normal Ears: TMs intact and clear, ear canals clear, no drainage, grossly hearing normal. Nose: Nares patent, clear nasal discharge, mild inflammation, no sinus tenderness. Mouth: Oral pharynx without lesions or masses, good dentition, MMM. Postnasal drip Neck: Supple, trachea midline, no enlargement of anterior or posterior cervical nodes, no thyroid masses or goiter palpable. Cardio: Regular rate and rhythm, s1 and s2 normal, no murmur appreciated. Resp: Clear to auscultation bilaterally, no rhonchi, rales, wheezing or rubs Course Course Emergency Course: Portions of this record may have been created with voice recognition software. Level of Care: Express Care Visit Vital Signs Vital signs: Vital Signs Temperature 36.8 C 11/29/24 18:41 Pulse Rate 73 11/29/24 18:41 Respiratory Rate 16 11/29/24 18:41 Blood Pressure 139/82 11/29/24 18:41 Pulse Oximetry 98 11/29/24 18:41 Temperature 36.8 C 11/29/24 18:41 Pulse Rate 73 11/29/24 18:41 Respiratory Rate 16 11/29/24 18:41 Blood Pressure 139/82 11/29/24 18:41 Pulse Oximetry 98 11/29/24 18:41 Vital signs reviewed MDM - URI/Sore Throat MDM Narrative Medical decision making narrative: At the time of visit patient is resting comfortably on the exam table. Patient appears to be nontoxic. C/o cough and nasal congestion x4 days. She reports coughing up clear phlegm. History of asthma. Has been using her air supra inhaler that has been helping. States she does feel short of breath. No fevers, chills, body aches. Has not taking any medications to treat her symptoms. On exam patient has bilateral TMs intact and clear, clear nasal drainage, mild anterior turbinate inflammation, postnasal drip, lung sounds clear, heart rates regular rate and rhythm. Patient is able speak in full sentences. No retractions Plan: I suspect patient has allergic rhinitis/cough. Patient does have history of asthma. Prescription for fluticasone, montelukast, and a refill of her air supra inhaler was sent to the pharmacy. Supportive measures were discussed with the patient and they voiced understanding discharge instructions and agrees to treatment plan. Return precautions reviewed Differential Diagnosis Differential diagnosis: Likely upper respiratory infection, otitis media, sinusitis, viral infection, bronchitis, influenza, pharyngitis and other (COVID) Discharge Plan Discharge Clinical Impression: Allergic rhinitis Qualifiers: Allergic rhinitis trigger: unspecified Allergic rhinitis seasonality: non-seasonal Qualified Code(s): J30.89 - Other allergic rhinitis Cough Qualifiers: Cough type: acute Qualified Code(s): R05.1 - Acute cough Patient Disposition: Home Condition: Stable Instructions: Antibiotic Form, Asthma (ED), Acute Cough (ED) Additional Instructions: Lung sounds are clear and there is no sign of bacterial infection in the clinic today. Oxygen saturations 98% on room air. Take prescription medications only as prescribed- fluticasone, montelukast, and air supra inhaler Cool-mist humidifier at the bedside Increase fluids and stay well hydrated May take Tylenol or motrin as directed on bottle for pain/fever May apply Vicks vapor rub to chest to open sinuses Sinus rinses for congestion Cepacol spray, cough drops, throat lozenges, warm tea with honey/lemon, gargle salt water to soothe throat BRAT diet for diarrhea Clear liquids x 24 hours then advance as tolerated for nausea/vomiting Go to the ED if you develop a worsening in your condition- high fever not controlled by Tylenol or Motrin, dehydration, weakness, lethargy, shortness of breath, or chest pain. Follow up with your PCP in 3-5 days if symptoms persist. Patient Language: Kyrgyz Prescriptions: New Airsupra 90-80 mcg/actuation HFA aerosol inhaler 2 inh inhalation QID 30 Days Qty: 10.7 0RF Rx Instructions: may use up to 6 doses per day (12 inhalations) fluticasone propionate 50 mcg/actuation spray,suspension 2 spray intranasal DAILY 30 Days Qty: 16 0RF Rx Instructions: administer into each nostril montelukast 10 mg tablet 10 mg PO HS 30 Days Qty: 30 0RF No Action Airsupra 90-80 mcg/actuation HFA aerosol inhaler 2 inh inhalation TID PRN (Reason: shortness of breath) acetaminophen 500 mg tablet 1,000 mg PO TID PRN (Reason: adolph) 7 Days Qty: 42 0RF ibuprofen 800 mg tablet 800 mg PO TID PRN (Reason: pain) 7 Days Qty: 21 0RF methocarbamol 750 mg tablet 1,500 mg PO TID Qty: 35 0RF Follow-up/Referrals: UNKNOWN,DOCTOR [Primary Care Provider] Time of Disposition: 18:49 Quality NIHSS Nursing Documentation ED NIHSS nursing documentation: reviewed/agree
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
--- OUTSIDE RECORDS SUMMARY | 2024-11-29 18:38 | XMS_ITS | Encounter Summary ---
Author Organization [facility] Address [facility] [place] [address] Care Team Providers Care Waste Salvager Name Role Phone Lizzy Young NP Primary Care Provider [phone]- [phone] Encounter Details Date Type Department Care Team (Late st Contact Info) Description 08/30/2024 My[facility] [address] [place] [address] Lizzy Young, IRWIN [address] [place], [place] [id number] test results Social History Tobacco Use Types Packs/Day Years Used Date Smoking Tobacco: Never Smokeless Tobacco: Never Alcohol Use Standard Drinks/Week Comments Yes 0 (1 standard drink = 0.6 oz pur e alcohol) socially PHQ-2 Answer Date Recorded Patient Health Questionnaire-2 Score 0 08/06/2024 Comments No Sex and Gender Information Value Date Recorded Sex Assigned at Female 04/07/2024 9:34 AM FAN BALANCER Legal Sex Female 10:48 AM CDT Gender Identity Female 04/07/2024 11:53 AM FAN BALANCER Sexual Orientation Straight 04/07/2024 11 :53 AM FAN BALANCER documented as of this encounter Plan of Treatment Upcoming Encounters Date Type Department Care Team (Late st Contact Info) Description 12/02/2024 1:40 PM CDT Office Visit [facility] [address] [place] [address] Lizzy Young, RETAIL AIDE [address] [place] [address] documented as of this encounter Visit Diagnoses Not on filedocumented in this encounter Care Teams Waste Salvager Relationship Specialty Start Date End Date Lizzy Young RETAIL AIDE [address] [place] [address] PCP - General NURSE PRACTITIONER 10/23/23 documented as of this encounter
--- OUTSIDE RECORDS SUMMARY | 2024-11-29 18:38 | XMS_ITS | Clinical Summary ---
Author Organization [facility] Address [address] [facility] [place] [address] Care Team Providers Care Marine Drafter Name Role Phone Maria Esther Lyon MD Primary Care Provider [phone] Sylvia Mendoza MD Unavailable Unavailable Source Comments [facility],non-owned Affiliates and Associated Physician Practices is amultiple site organization consisting of ambulatory clinics and hospital sitesin [place], [place], [place] and [place]. This disclosure is being madepursuant to the Care Everywhere program and may not contain all information available regarding this patient. Last updated 17.[facility] Allergies No known active allergies Medications * Be aware that medications may not be up to date on this document. Alwaysverify current medications with the patient. medroxyPROGEST ERone (DEPO-PROVERA) 150 MG/ML prefilled syringe INJ 1 SYRINGE IM UTD 4 8 Active albuterol HFA (PROVENTIL;TERRI TOLIN;PROAIR) 108 (90 Base) MCG/ACT inhaler Inhale 2 puffs by mouth every 6 hours as needed Active ibuprofen (MOTRIN) 200 MG tablet Take 1 tablet by mouth every 6 hours as needed for Pain 0 Active acetaminophen (TYLENOL) 325 MG tablet Take 1 tablet by mouth every 4 hours as needed for Fever or Pain Maximum allowable Acetaminophen amount = 4 Grams (4000 mg) / 24 hours. 0 Active chlorhexidine gluconate (HIBICLENS) 4 % solution Apply to affected area 3 times daily 473 mL 1 0 Active HYDROcodone-ac etaminophen (NORCO) 5-325 MG tabletIndicati ons:Pain Take 1 tablet by mouth every 6 hours as needed for Pain Reasons: Pain 12 tablet 0 Active Active Problems Problem Noted Date Diagnosed Date Ingrown left big toenail 11/11/2017 Ingrown right big toenail 08/26/2017 Social History Tobacco Use Types Packs/Day Years Used Date Smoking Tobacco: Never Smokeless Tobacco: Never Comments No Sex and Gender Information Value Date Recorded Sex Assigned at Not on file Legal Sex Female 11:04 AM CDT Gender Identity Not on file Sexual Orientation Not on file Last Filed Vital Signs Vital Sign Reading Time Taken Comments Blood Pressure 110/68 07/05/2019 11:45 AM CDT Pulse 60 07/05/2019 12:00 PM CDT Temperature 36.7 C (98 F) 07/05/2019 11:45 AM CDT Respiratory Rate 10 07/05/2019 12:00 PM CDT Oxygen Saturation 99% 07/05/2019 12:00 PM CDT Inhaled Oxygen Concentration 100% 07/05/2019 1 1:15 AM CDT Weight 59 kg (130 lb) 07/20/2019 10:55 AM CDT [facility] Height 168 cm (5' 6.14) 07/05/2019 8:27 AM CDT Body Mass Index - - Plan of Treatment Health Maintenance Due Date Last Done Comments HIV SCREENING 2017 HPV VACCINE (1 - 3-dose series) 2017 CHLAMYDIA/GONORRHEA SCREENING 2018 MENINGOCOCCAL (Group B) VACC INE SHARED DECISION-MAKING (1 of 2 - Standard) 2018 HEPATITIS C SCREENING 05/02/2020 DTAP/TDAP/TD VACCINES (1 - Tdap) 2021 HEPATITIS B VACCINE (1 of 3 - 19+ 3-dose series) 2021 DEPRESSION SCREENING 02/18/2024 COVID-19 VACCINE (1 - 2023-2 5 season) 2024 INFLUENZA VACCINE (#1) 2024 ZOSTER VACCINE (1 of 2) 2052 HIB VACCINE Aged Out No longer eligi ble based on patient's age to complete this topic MENINGOCOCCAL GROUPS A/C/Y/W VACCINE Aged Out No longer eligible b ased on patient's age to complete this topic PNEUMOCOCCAL VACCINE Aged Out No long er eligible based on patient's age to complete this topic Insurance [facility] Care Teams Marine Drafter Relationship Specialty Start Date End Date Maria Esther Lyon MD [address] [place] [address] [place] [id number] PCP - General Pediatrics 08/26/17 Sylvia Mendoza MD [address] [place] [address] [place] [address] Orthopedic Surgery 06/15/19
--- OUTSIDE RECORDS SUMMARY | 2024-11-29 18:38 | XMS_ITS | Data Portability ---
Author Organization [facility] Address [address] [place] [address] Care Team Providers Care Forensics Team Director Name Role Phone JER ALFONSO Primary Care Provider Assessment Encounter Date Assessment Date Assessment LastModified by Organization Details LastModified Time 05/11/2024 05/11/2024 Annual gynecological exam performed. Patient will come back in a year unless there are new symptoms. Not available 2024 10:24:30 Plan of Treatment Reminders Order Date Submit Date Provider Last Modified By Organization Details Last Modified Time Details Appointments None recorded. Lab unlisted lab - women's health swab plus, JIM 2024 025 [facility] (Lab), [address] , [place], [address], 5 06:53:41 urinalysis, dipstick 2024 025 [email or web address] [place], [facility] [address], [place], [address], 16:50:01 culture, urine 2024 025 [facility] (Lab), [address], [place], [address], 5 06:53:41 CT RNA, qual, PCR, unspecified specimen 2024 025 [facility] (Lab), [address] [facility], [place], [address], 5 16:40:57 urinalysis, dipstick [address], [address], [address], [place], [address], 16:42:39 culture, urine 2024 025 [facility] (Lab), [address] [facility], [place], [address], 5 10:35:18 pap, IG + reflex HPV if ASC-U - if hpv positive run subtyping 16, 18/45 add gc/chlam/tr ich 2024 025 [facility] (Lab), [address] [facility], [place], [address], 5 10:35:17 Referral None recorded. Procedures None recorded. Surgeries None recorded. Imaging None recorded. Medication Orders ceftriaxone 500 mg solution for injection [email or web address] [place] [address] [facility], [address] [place], [place], [id number], 10:45:22 metronidazo le 0.75 % (37.5 mg/5 gram) vaginal gel [address] [facility], [address] [place], [place], [id number], 5 16:49:50 Bactrim DS 800 mg-160 mg tablet 2024 025 [facility]26, [address] [place], [place], [id number], 09:46:33 Patient TargetsNo targets recorded. Patient InstructionsNo instructions recorded. Reason for Referral None Reported. Results Created Date Observation Date Name Description Value Unit Range Abnormal Flag Note LastModifiedBy Organization Detail LastModifiedTime 05/12/1905/11/2024 IMAGE GUIDE D PAP, REFLE X HPV IF ASCUS ONLY image guided Pap, reflex HPV ASCUS only SEE RESULT S BELOW abnormal CASE REPOR T: Cytol ogy Gynec ologi abi Repor t Case: [id number] Autho debbie mackenzie Provi lindsay: Dermo dy, Matilde , ANP, EDUCATION COUNSELOR Colle cted: 05/11 1543 Order ing Locat ion: [place] Path[facility] Recei donn: 05/12 1011 First Scree n: Larisa Singh , [place] Patho logis t: Mathew Ward MD Speci men: Nimco esquivel Pap - Image d, Cervi x STATE MENT OF ADEQU ACY: Satis facto ry for evalu ation Trans forma tion zone compo nent prese nt ----- ----- ----- ----- ----- ----- ----- ----- ----- ----- ----- ----- ----- ----- ----- ----- ----- ---- FINAL DIAGN OSIS: Epith elial Cell Abnor malit y, Squam ous Cell: Low Grade Squam ous Intra epith elial Lesio n (LSIL ). Elect leora sparks by Mathew Ward MD on 025 at 0931 CDT ----- ----- ----- ----- ----- ----- ----- ----- ----- ----- ----- ----- ----- ----- ----- ----- ----- ---- COMME NT: This speci men was revie wed by a Cytot echno logis t and/o r Patho logis t (as indic ated in this repor t) after evalu ation using the Thinp rep Imagi ng Syste m. CLINI ABI INFOR MATIO N: Menst rual Statu s: LMP (if appli cable ): Clini abi Histo ry/Pr eviou s Pap: Type of Neopl claudio (if appli cable ): Signi fican t Clini abi Findi ngs: Other Histo ry: Hormo saurabh (if appli cable ): SUGGE STED FOLLO W-UP: Follo w up as warra nted, based on curre nt guide lines and indiv idual patie nt consi derat ions. Not Available [facility] (Lab) [address] [facility], [place], [address], 05/18/2024 10:35:17 05/12/19 25 05/11/2024 TRICH OMONA S VAGIN LEAH (RRNA ) trichomonas vaginalis ribosomal RNA (rrna) Negati ve negati ve Not Available [facility] (Lab) [address] [place], [address], 05/18/2024 10:35:18 05/12/19 25 05/11/2024 CULTU RE: URINE result report SEE RESULT S BELOW Test: Cultu re: Urine Speci men Sourc e: Urine - Clean Catch Speci men Type: Urine Speci men Date: 2024 1543 Resul t Date: 2024 0632 Resul t Statu s: Final resul t Abnor mal: No Resul ting Lab: [facility] [address] [facility] [address] Tel: CULTU RE ----- ----- ----- --- No growt h in 1 day (dete ction level of 10,00 0 colon ies / ml.) Not Available [facility] (Lab) [address] [place], [address], 05/18/2024 10:35:18 05/12/19 25 05/11/2024 CT/GC (YELENA) , THINP REP VIAL chlamydia trachomatis, PCR Positi ve negati ve abnormal Posit elodia: Prese nce of C. trach omati s (by YELENA) Chlam tetoa trach omati s RNA detec bradly by PCR. Not Available [facility] (Lab) [address] [facility], [place], [address], 05/18/2024 10:35:19 05/12/1905/11/2024 CT/GC (YELENA) , THINP REP VIAL neisseria gonorrhoeae, PCR Negati ve negati ve Not Available [facility] (Lab) [address] [facility], [place], [address], 05/18/2024 10:35:19 05/12/1905/11/2024 urina lysis , dipst ick Leukocytes - Not Available [facility] [address], [place], [address], 05/11/2024 16:40:18 05/12/1905/11/2024 urina lysis , dipst ick Nitrite - Not Available [place] [address], [place], [address], 05/11/2024 16:40:18 05/12/1905/11/2024 urina lysis , dipst ick Urobilinogen - Not Available [facility] [address], [place], [address], 05/11/2024 16:40:18 05/12/19 25 05/11/2024 urina lysis , dipst ick Protein trace Not Available [place] [address], [place], [address], 05/11/2024 16:40:18 05/12/1905/11/2024 urina lysis , dipst ick pH 9 Not Available [place] [address], [place], [address], 05/11/2024 16:40:18 05/12/1905/11/2024 urina lysis , dipst ick Specific [place] 1.005 Not Available [facility] [address], [place], [address], 05/11/2024 16:40:18 05/12/19 25 05/11/2024 urina lysis , dipst ick Ketone - Not Available [place] [address], [place], [address], 05/11/2024 16:40:18 05/12/19 25 05/11/2024 urina lysis , dipst ick Bilirubin - Not Available [facility] [address], [place], [address], 05/11/2024 16:40:18 05/12/19 25 05/11/2024 urina lysis , dipst ick Glucose - Not Available [place] [address], [place], [address], 05/11/2024 16:40:18 05/12/19 25 05/11/2024 urina lysis , dipst ick Appearance cloudy Not Available [facility] [address], [place], [address], 05/11/2024 16:40:18 05/12/19 25 05/11/2024 urina lysis , dipst ick Color light yellow Not Available [place] [address], [place], [address], 05/11/2024 16:40:18 07/14/19 25 07/13/2024 CHLAM YHEIDIA TRACH OMATI S (YELENA) , URINE chlamydia trachomatis, PCR Negati ve negati ve Not Available [facility] (Lab) [address] [facility], [place], [address], 07/14/2024 16:40:57 08/04/19 25 08/03/2024 CULTU RE: URINE result report SEE RESULT S BELOW Test: Cultu re: Urine Speci men Sourc e: Urine - Midst ream Speci men Type: Urine Speci men Date: 2024 1645 Resul t Date: 20249 Resul t Statu s: Final resul t Abnor mal: No Resul ting Lab: [facility] [address] [facility] [address] Tel: CULTU RE ----- ----- ----- --- No growt h in 1 day (dete ction level of 10,00 0 colon ies / ml.) Not Available [facility] (Lab) [address] [place], [address], 08/06/2024 06:53:41 08/04/19 25 08/03/2024 WOMEN 'S HEALT H SWAB PLUS, JIM bacterial vaginosis (bv), tma Positi ve negati ve abnormal Not Available [facility] (Lab) [address] [place], [address], 08/06/2024 06:53:41 08/04/19 25 08/03/2024 WOMEN 'S HEALT H SWAB PLUS, JIM noam species, tma Negati ve negati ve Not Available [facility] (Lab) [address] [place], [address], 08/06/2024 06:53:41 08/04/19 25 08/03/2024 WOMEN 'S HEALT H SWAB PLUS, JIM noam glabrata, tma Negati ve negati ve Not Available [facility] (Lab) [address] [place], [address], 08/06/2024 06:53:41 08/04/19 25 08/03/2024 WOMEN 'S HEALT H SWAB PLUS, JIM trichomonas vaginalis, tma Negati ve negati ve Not Available [facility] (Lab) [address] [place], [address], 08/06/2024 06:53:41 06/1708/03/2024 WOMEN 'S HEALT H SWAB PLUS, JIM chlamydia trachomatis, PCR Positi ve negati ve abnormal Posit elodia: Prese nce of C. trach omati s (by YELENA) Chlam ydia trach omati s RNA detec bradly by PCR. Not Available [facility] (Lab) [address] [facility], [place], [address], 08/06/2024 06:53:41 08/04/1908/03/2024 WOMEN 'S HEALT H SWAB PLUS, JIM neisseria gonorrhoeae, PCR Positi ve negati ve abnormal Posit elodia: Prese nce of N. gonor rhoea e (by YELENA) Neiss eria Gonor rhoea e RNA detec bradly by PCR. Bacte rial vagin osis detec ts the follo wing bacte carlos assoc iated with bacte rial vagin osis (BV): Lacto bacil cricket (L. gasse ri, L. crisp atus and L. jense karen), Gardn erell a vagin leah, and Atopo bium vagin ae. A singl e quali tativ e resul t is repor bradly base on instr ument softw are to deter mine BV posit elodia or negat elodia statu s. The [facility]y [facility] speci es group tests for C. albic ans, C. tropi calis , C. parap cristy is, C. dubli niens is. Testi ng is perfo rmed using the Trans cript ion Media bradly Ampli ficat ion metho d. Tests for Becky da glabr reyna, Trich omona s vagin leah, Chlam ydia trach omati s, and Neiss eria gonor rhoea e are also inclu ded in this panel . Not Available [facility] (Lab) [address], [place], [address], 08/06/2024 06:53:41 08/04/19 25 08/03/2024 urina lysis , dipst ick Leukocytes - Not Available [facility] [address], [place], [address], 08/03/2024 16:34:34 08/04/19 25 08/03/2024 urina lysis , dipst ick Nitrite - Not Available [place] [address], [place], [address], 08/03/2024 16:34:34 08/04/19 25 08/03/2024 urina lysis , dipst ick Urobilinogen - Not Available [facility] [address], [place], [address], 08/03/2024 16:34:34 08/04/19 25 08/03/2024 urina lysis , dipst ick Protein trace Not Available [place] [address], [place], [address], 08/03/2024 16:34:34 08/04/19 25 08/03/2024 urina lysis , dipst ick pH 5 Not Available [place] [address], [place], [address], 08/03/2024 16:34:34 08/04/19 25 08/03/2024 urina lysis , dipst ick Specific [place] 1.000 Not Available [facility] [address], [place], [address], 08/03/2024 16:34:34 08/04/19 25 08/03/2024 urina lysis , dipst ick Ketone - Not Available [place] [address], [place], [address], 08/03/2024 16:34:34 08/04/19 25 08/03/2024 urina lysis , dipst ick Bilirubin - Not Available [facility] [address], [place], [address], 08/03/2024 16:34:34 08/04/19 25 08/03/2024 urina lysis , dipst ick Glucose - Not Available [place] [address], [place], [address], 08/03/2024 16:34:34 08/04/19 25 08/03/2024 urina lysis , dipst ick Appearance cloudy Not Available [facility] [address], [place], [address], 08/03/2024 16:34:34 08/04/19 25 08/03/2024 urina lysis , dipst ick Color yellow Not Available [place] [address], [place], [address], 08/03/2024 16:34:34 Result Notes None recorded. Procedures Surgical History Date Name Laterality Status Provider Name and Address Organization Details Recorded Time 05/12/19 25 Date of Last Pap Smear completed Evelia Alexandra [facility] 07/13/2024 17:05:37 02/04/20 24 IUD Insertion completed Helena Schultz [facility] 02/04/2024 18:20:35 11/18/19 24 IUD Insertion completed Jono Arreaga MD [address], [place], [address], [facility] 12/17/2023 19:44:35 02/17/19 21 extraction of wisdom tooth completed Jen Victor [facility] 08/11/2023 10:21:32 02/17/19 20 operative procedure on foot completed Jen Victor [facility] 08/11/2023 10:21:08 02/17/19 20 operative procedure on foot completed Jen Victor [facility] 08/11/2023 10:21:22 Imaging Results None recorded. Procedure Notes None recorded. Medical Equipment None Reported. Allergies No known drug allergies Medications Name Sig Start Date Stop Date Status Note LastModified by Organization Details LastModified Time terbinafine HCl 1 % topical cream APPLY TOPICALLY TO THE AFFECTED AREA TWICE DAILY FOR 21 DAYS 08/10 completed Not Available Not Available Not Available doxycycline hyclate 100 mg capsule TAKE 1 CAPSULE BY MOUTH TWICE DAILY FOR 7 DAYS active Not Available Not Available No t Available azithromyci n 250 mg tablet 09/17 completed Not Available Not Available Not Available fluconazole 150 mg tablet TAKE 1 TABLET BY MOUTH NOW. REPEAT IN 48 HOURS active Not Available Not Available No t Available metronidazo le 0.75 % (37.5 mg/5 gram) vaginal gel INSERT ONE APPLICATO RFUL VAGINALLY AT BEDTIME X 5 NIGHTS active Not Available Not Available No t Available metronidazo le 500 mg tablet Take 1 tablet twice a day by oral route with meals for 7 days. 2024 active Not Available Not Available Not Avai lable sulfamethox azole 800 mg-trimetho prim 160 mg tablet TAKE 1 TABLET BY MOUTH EVERY 12 HOURS FOR 7 DAYS 05/24 completed Not Available Not Available Not Available triamcinolo ne acetonide 0.1 % topical cream APPLY TOPICALLY TO RASH TWICE DAILY FOR 1 WEEK 08/10 completed Not Available Not Available Not Available amoxicillin 500 mg tablet TAKE 1 TABLET BY MOUTH EVERY 12 HOURS FOR 10 DAYS 09/17 completed Not Available Not Available Not Available estradiol 1 mg tablet TAKE 1 TABLET BY MOUTH EVERY DAY 11/17 completed Not Available Not Available Not Available meclizine 25 mg tablet TAKE 1 TABLET BY MOUTH THREE TIMES DAILY NEEDED FOR DIZZINESS 09/17 completed Not Available Not Available Not Available triamcinolo ne acetonide 0.1 % topical ointment APPLY THIN LAYER TOPICALLY TO THE AFFECTED AREA TWICE DAILY NEEDED 08/10 completed Not Available Not Available Not Available ceftriaxone 500 mg solution for injection Take 500 mg by injection route. 2024 active Not Available Not Available Not Avai lable albuterol sulfate HFA 90 mcg/actuati on aerosol inhaler INHALE 2 TO 3 PUFFS BY MOUTH EVERY 4 TO 6 HOURS NEEDED 09/17 completed Not Available Not Available Not Available ondansetron 4 mg disintegrat ing tablet DISSOLVE 1 TABLET ON THE TONGUE EVERY 8 HOURS NEEDED FOR NAUSEA OR VOMITING 09/17 completed Not Available Not Available Not Available doxycycline hyclate 100 mg tablet TAKE 1 TABLET BY MOUTH TWICE DAILY FOR 7 DAYS 08/10 completed Not Available Not Available Not Available naproxen 500 mg tablet 11/17 completed Not Available Not Available Not Available neomycin-po lymyxin-hyd rocort 3.5 mg-10,000 unit/mL-1 % ear drops,susp INSTILL 3 DROPS IN BOTH EARS THREE TIMES DAILY FOR 10 DAYS active Not Available Not Available No t Available atomoxetine 40 mg capsule 11/17 completed Not Available Not Available Not Available nitrofurant oin monohydrate /macrocryst als 100 mg capsule TAKE 1 CAPSULE BY MOUTH TWICE DAILY active Not Available Not Available No t Available Depo-Curtain Fitter a 11/17 completed Not Available Not Available Not Available Vyvanse 40 mg capsule TAKE 1 CAPSULE BY MOUTH IN THE MORNING 09/17 completed Not Available Not Available Not Available Kyleena 17.5 mcg/24 hr (up to 5 years) 19.5 mg intrauterin e device Take 1 device by intrauter ine route. 2023 active Not Available Not Available Not Avai foster [employer] COVID-19 Ag Self Test kit TEST DIRECTED TODAY 11/06 completed Not Available Not Available Not Available Vitals Date Recorded Body height Body mass index (BMI) Body weight Systolic And Diastolic Provider Name and Address Organization Details Last Updated DateTime 05/11/2024 167.64 cm 29.4 kg/m2 75310.81 g 126/81 mm[Hg] [facility] 05/11/2024 16:24:08 Date Recorded Body height Body mass index (BMI) Body weight Systolic And Diastolic Provider Name and Address Organization Details Last Updated DateTime 07/13/2024 167.64 cm 28.7 kg/m2 19384.44 g 111/71 mm[Hg] [facility] 07/13/2024 17:00:16 Date Recorded Body height Body mass index (BMI) Body weight Systolic And Diastolic Provider Name and Address Organization Details Last Updated DateTime 08/03/2024 167.64 cm 28.7 kg/m2 43426 g 115/76 mm[Hg] [facility] 08/03/2024 16:10:07 Date Recorded Body height Body mass index (BMI) Body weight Systolic And Diastolic Provider Name and Address Organization Details Last Updated DateTime 08/10/2024 167.64 cm 28.7 kg/m2 60240 g 133/77 mm[Hg] Evelia Alexandra [facility] 08/10/2024 10:43:48 Date Recorded Body height Body mass index (BMI) Body weight Systolic And Diastolic Provider Name and Address Organization Details Last Updated DateTime 02/04/2024 167.64 cm 28.2 kg/m2 28504.66 g 122/78 mm[Hg] Helena Schultz [facility] 02/04/2024 18:21:20 Social History Question Answer Notes LastModified by Organizat ion Details LastModified Time Tobacco Smoking Status Never Smoker Helena [facility]er [facility] 09/17/2022 18:25:56 Are You Blind Or Do You Have Difficulty Seeing? No Information n ot available 08/11/2023 What Is Your Level Of Caffeine Consumption? Occasional [email or web address] Information not available 07/13/2024 How Much Tobacco Do You Chew? None [email or web address] Information not available 07/13/2024 In The 14 Days Before Symptom Onset, Have You Had Close Contact With A Laboratory-confirm ed COVID-19 While That Case Was Ill? No Information n ot available 09/17/2022 In The 14 Days Before Symptom Onset, Have You Had Close Contact With A Person Who Is Under Investigation For COVID-19 While That Person Was Ill? No Information not available 09/17/2022 Have You Been To An Area Known To Be High Risk For COVID-19? No Information not available 09/17/2022 Are You Deaf Or Do You Have Serious Difficulty Hearing? No Information not available 08/11/2023 What Type Of Diet Are You Following? REGULAR [email or web address] Information n ot available 08/11/2023 What Is The Highest Grade Or Level Of School You Have Completed Or The Highest Degree You Have Received? [id number] [email or web address] Information not available 05/11/2024 Are There Any Guns Present In Your Home? No [email or web address] Information not available 07/13/2024 Do You Use Protection During Sex? Usually [email or web address] Information not available 05/11/2024 Do You Use Your Seat Belt Or Car Seat Routinely? Yes Information not available 07/13/2024 Do You Have Smoke And Carbon Monoxide Detectors In Your Home? Yes [email or web address] Information not available 08/11/2023 How Much Tobacco Do You Smoke? No [email or web address] Information not available 07/13/2024 Do You Use Sunscreen Routinely? Yes [email or web address] Information not available 08/11/2023 Has Tobacco Cessation Counseling Been Provided? No [email or web address] Information not available 08/11/2023 Have You Used IV Drugs? No [email or web address] Information not available 05/11/2024 Do You Have Difficulty Walking Or Climbing Stairs? No [email or web address] Information not available 08/11/2023 Sex: Female Functional Status Question Answer Note LastModified by Organizat ion Details LastModified Time Do you use any illicit or recreational drugs? No Information not available 09/17/2022 Do you or have you ever used any other forms of tobacco or nicotine? No [email or web address] Information not available 08/11/2023 What is your level of alcohol consumption? Occasional [email or web address] Information not available 07/13/2024 Are you able to care for yourself independently? 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 No [email or web address] Information not available 08/11/2023 What is your exercise level? Moderate [email or web address] Information not available 07/13/2024 Mental Status Question Answer Note LastModified by Organization D etails LastModified Time Do you feel stressed (tense, restless, nervous, or anxious, or unable to sleep at night)? [id number] [email or web address] Information not available 08/11/2023 Family History Relationship Description Onset Age of this Age Resolved Age Notes LastModified by Organization Details LastModified Time Mother Asthma Not available 18:24:24 Paternal Aunt Heart disease Not available 2022 18:24:35 Paternal Aunt Kidney disease Not available 2022 18:25:31 Paternal Grandfather Hypercholest erolemia Not available 2022 18:24:46 Paternal Grandfather Hypertensive disorder Not available 2022 18:24:58 Paternal Grandmother Malignant neoplasm of uterus Not available 2022 18:25:19 Medical History Condition Response Allergies (Food, seasonal, environmental ) N Other N Blood Transfusion N Breast Cancer N Drug/Latex Allergies/Reactions N Dermatologic Disorders N Lung Disease N Defects or Inherited Disease N Breast Problem N Gestational Diabetes N Hematologic disorders N Anesthesia Complications N History of STI Y Deep Vein Thrombosis N Polycystic ovary syndrome N Anxiety Disorder N Autoimmune disease N Arthritis N Polyps N Infertility N Acid Reflux (GERD) N History of abnormal pap N Cancer N Varicosities N Stroke N Neurologic/Epilepsy N Endometriosis N High Cholesterol N Fibromyalgia N Headaches N Kidney Disease N Heart Problems N Thyroid Problems N Kidney or Bladder Problems N GI Problems N Eating Disorder N Anemia N Art (IVF or FET) N Psychiatric Illness N Ovarian Cancer N Diabetes N Pulmonary (TB, Asthma) N Hepatitis/Liver Disease N No Past Medical History N Eczema N Urinary Tract Infection N Abuse/Domestic Violence N Asthma Y Trauma/Violence N Depression/ depression N Heart Disease N Pre-Eclampsia N Hypertension N Osteoporosis N Thrombophilias N Gynecological History Statement/Question Response Flow Light Date of Last Mammogram Date of LMP 07/24/2024 Was last menstrual period normal Y STIs/STDs Y Duration of Flow (days) 10 Current Control Method IUD Are cycles usually normal Y Sexually Active? Y Menses Monthly Y Date of DEXA bone scan Age of first menstrual cycle 16 Date of Last Pap Smear 05/11/2024 Sexual Problems? N Desired Control Method IUD LMP Definite Obstetrics History GPAL:G 0 P 0 0 0 0 Type Value Living 0 Total 0 Past Encounters Encounter ID Performer Location Encounter Start Date Encounter Closed Date Diagnosis/Indication Diagnosis SNOMED-CT Code Diagnosis ICD10 Code Diagnosis IMO Codes Diagnosis Note [id number] Ayesha Howell , [facility] [address] [address] 09/17/2022 17:57:36 09/19/2022 10:42:10 Recurrent urinary tract infection 944838430 N39.0 Today we discussed use of Macrobid post-coita l for prevention of UTI.Instru ctions reviewed.C ounseled on medication R/B's, Most common side effects, & use. All questions were answered to patient satisfacti on. F/U x 3mos or prn if needed. Time spent in visit is a total of 30 mins with at least 50% of visit consisting of counseling and review of plan of care. Vaginitis [id number] N76.0 Exam +vag d/cSwab sentSTD sentWill reach out with results. [id number] [facility] [address],[place] [address] 11/06/2022 17:47:02 11/07/2022 12:59:33 Vaginitis [id number] N76.0 Exam +vag d/c; treated for possible BVSTD sentWill reach out with results. Time spent in visit is a total of 15 mins with at least 50% of visit consisting of counseling and review of plan of care. Venereal d isease screening [id number] Z11.3 IGNACIO sent todayPartn er treated [id number] Jono Arreaga MD [place] [address],[place] [address] 08/11/2023 09:56:49 08/12/2023 11:00:38 Irregular periods [id number] N92.6 23-year-ol d female with irregular bleeding. She is also using the Depo shot for contracept ion. She was counseled on contracept ion. She was counseled on the effects Depo-Prove ra. She is informed that her estrogen is low. In the bleeding occurs because of low estrogen. She also knows that, because I informed her, that is starting Depo involves some irregular bleeding for approximat comfort 4 months. We talked about observatio n. Talked about intermitte nt treatment with estrogen. She was prescribed estrogen. She was given precaution s. She will consider intermitte nt use of estrogen with bleeding on Depo. We spent 20 minutes face-to-fa ce. More than 50% was counseling . Leukocytes in urine [id number] R82.79 Bacterial vaginosis [id number] N76.0 [id number] Jono Arreaga MD [place] [address],[place] [address] 11/18/2023 11:43:00 11/19/2023 09:32:42 Insertion of intrauterine contraceptive device [id number] Z30.430 IUD inserted without complicati ons. She tolerated well. [id number] ADAN OLSON MD [place] [address],[place] [address] 12/01/2023 12:00:08 12/01/2023 12:33:02 Urinary symptoms [id number] R39.9 Urinary tr act infectious disease [id number] N39.0 [id number] Jono Arreaga MD [place] [address],[place] [address] 02/04/2024 18:10:52 02/05/2024 10:58:13 Contraception care management [id number] Z30.9 This patient is a female who presents for IUD check. She had a Mirena IUD inserted formerly [facility] 1 month ago. She has complaint of episodic light bleeding and occasional severe cramps. She denies any excessive bleeding or pain. She has had some cramping and some spotting. Otherwise, she feels that is going well and wants to continue her IUD. we agreed to observe her symptoms and consider remediatio n these problems persist. [id number] Jono Arreaga MD [place] [address],[place] [address] 05/11/2024 16:03:55 05/11/2024 16:49:21 Urinary symptoms [id number] R39.9 Patient presents with symptoms of UTI. Results of dipstick were negative for UTI.Urine culture sent. Patient had been taking Macrobid 100 mg one tablet PRN after intercours e to prevent UTIs, but stopped taking it consistent ly last month since she has been with the same partner. Advised to drink clear fluids, Tylenol for pain and take prescribed medication s as instructed . Patient encouraged to follow up within 1 week if not improving. Gynecologi c examination [id number] Z01.419 Annual gynecologi abi exam performed. Patient will come back in a year unless there are new symptoms. Suggest Calcium with Vitamin D if not eating in diet. Patient advised to get annual flu shot. Recommend yearly physicals and perform monthly breast exams. Genetic testing is available for patients with family history of cancer. Engage in safe sexual practices, use condoms. Encouraged to have daily exercise. Avoid tobacco and illicit drugs, moderation of alcohol. If BMI greater than 25 dietary consult advised. If you have any questions please call or email. Pap smear- pap w/ HPV reflex collected laboratory evaluation - PCP STI testing - requested A Kyleena IUD prevents for up to 5 years. Venereal d isease screening [id number] Z11.3 Pt requested STI testing.Di scussed the various types of STDs, related symptoms and the potential consequenc es (including effects on fertility) of STD infections . Reviewed ways to limit exposure and prevention techniques . [id number] Jono Arreaga MD [place] [address],[place] [address] 07/13/2024 16:53:52 07/13/2024 17:18:55 Chlamydia trachomatis infection [id number] A56.8 [id number] Urine sample collected to test for chlamydia after being treated with doxycyclin e 7 weeks ago. Discussed the various types of STDs, related symptoms and the potential consequenc es (including effects on fertility) of STD infections . Reviewed ways to limit exposure and prevention techniques . [id number] Jono Arreaga MD [place] [address],[place] [address] 08/03/2024 15:54:57 08/03/2024 16:37:18 Vaginal discharge [id number] N89.8 69249 Discussed empirical treatment with metronidaz ole for suspected BV based on reported symptoms and physical exam findings.D iscussed vulvar care guidelines in addition to laundry/sk in irritants to avoid.Sanju mmended boric acid capsules - insert one capsule vaginally at H.S. after period, intercours e, and/or with symptoms.R ecommended daily probiotic pill for vaginal health.Vag initis panel sent to r/o trich/yeas t/BV Venereal d isease screening [id number] Z11.3 170612 Pt requested STI testing.Di scussed the various types of STDs, related symptoms and the potential consequenc es (including effects on fertility) of STD infections . Reviewed ways to limit exposure and prevention techniques . Cloudy urine 7188199 R82 .90 [id number] Urine dipstick negative. Patient c/o cloudy urine.Will send culture to r/o infection. Irregular periods [id number] [id number] N92.6 [id number] Discussed that irregular spotting can occur with an IUD. Will r/o infectious cause with Nuswab.Pat ient will follow-up if bleeding irregulari ty persists. [id number] Jono Arreaga MD [place] [address],[place] [address] 08/10/2024 09:53:07 08/10/2024 10:47:34 Sexually transmitted infectious disease [id number] A64 64164 Health Concerns Section Related Observation LastModified by Organization Detai ls LastModified Time None Recorded Concern Status LastModified by Organization Details LastModified Time None Recorded Advance Directives Directive None Recorded Payers Insurance Date Sequence Insurance Name Policy Number Policy Torres Covered Member ID Torres Member ID Guarantor Name 08/26/2024 1 [employer] (POS) [id number] Vikki Jay [id number] Vikki Jay 05/11/2024 1 *SELF PAY* Jeannette Jay 07/13/2024 1 [facility] [id number] Vikki Jay [id number] Vikki Jay 08/26/2024 1 *SELF PAY* Jeannette Jay 07/13/2024 1 [facility] - DOS ON OR AFTER 20 (MEDICAID REPLACEMENT - HMO) Vikki Jay [id number] Vikki Jay Notes Date Note Type Note Provider Name and Address Organization Details Recorded Time 4 text/html This patient is a female who presents for IUD check. She had a Mirena IUD inserted approximately 1 month ago. She has complaint of episodic light bleeding and occasional severe cramps. She denies any excessive bleeding or pain. She has had some cramping and some spotting. Otherwise, she feels that is going well and wants to continue her IUD. we agreed to observe her symptoms and consider remediation these problems persist. Jono Arreaga MD [address], [place], [address], [facility] 02/04/2024 18:50:22 5 text/html Annual GYNReported by PatientGenitourinary symptomsFor menstrual cycle, patient reportsnormal menses. For urinary symptoms, patient reportsno hematuriaandno incontinence. For vulva, patient reportsno genital lesion. For vagina, patient reportsnormal vaginal discharge.Breast symptomsFor breast, patient reportsno breast pain,no breast lump, andno nipple discharge.Endocrine symptomsFor sexual complaints, patient reportsno sexual complaints,no pain during intercourse, andnormal libido. For menopausal symptoms, patient reportsno menopausal symptomsandnormal vaginal lubrication.Psychological symptomsFor psychological symptoms, patient reportsno depression,no anxiety, andno pmdd. Patient presents for annual well woman exam.Patient reports dysuria, pelvic pressure, cloudy urine x one week. Denies vaginal odor, itching, or discharge.Patient requests STI testing. MATILDE GOOD NP [address], [place], [address], [facility] 05/11/2024 16:45:20 5 text/html 24 y/o female presents for chlamydia test of cure.Patient states that she took the doxycycline as prescribed and has not had unprotected intercourse since being treated. MATILDE GOOD NP [address], [place], [address], [facility] 07/13/2024 17:17:30 5 text/html 24 y/o female presents light spotting for the past week which is the second period in one month, has Kyleena IUD and usually has only one period per month.Patient also c/o vulvar itching, cloudy urine, and vaginal odor x 2 days.Neg pain of abd/pelvis/flankNeg GI sx'sNeg N/V/F/C/D Evelia puckett, [facility] 08/03/2024 16:53:44 OBGyn Episode No OBEpisode recorded.
[2024-11-29 18:41] VITALS: BP 139/82; PULSE 73; RESP 16; TEMP 36.8; O2SAT 98
== END 2024-11-29 18:54 | disposition home or self-care (01) ==
PROVIDERS: Emergency Provider Nurse Practitioner Family
DX: J30.89 Other allergic rhinitis (principal); R05.1 Acute cough; J45.909 Unspecified asthma, uncomplicated
CPT/HCPCS: 99213; G0463

== ENCOUNTER 2024-12-19 18:52 | Emergency (ER) | payer BC, SELFPAY ==
--- NOTE | ~2024-12-19 | XR_ITS ---
Examination: XR chest 1V portable Clinical History: cough Comparison: 01/18/2021 Technique: Portable AP Findings: Heart size normal. Lungs clear. No acute bony abnormality. IMPRESSION: 1. No acute cardiopulmonary findings given portable technique. Reviewed, dictated and finalized at location R. [employer]
--- OUTSIDE RECORDS SUMMARY | 2024-12-19 18:54 | XMS_ITS | Clinical Summary ---
Author Organization [facility] Address [address] [place] [address] Care Team Providers Care Certified Appliance Service Technician Name Role Phone Maria Esther Lyon MD Primary Care Provider [phone] Sylvia Mendoza MD Unavailable Unavailable Source Comments [facility],non-owned Affiliates and Associated Physician Practices is amultiple site organization consisting of ambulatory clinics and hospital sitesin [place], [place], [place] and [place]. This disclosure is being madepursuant to the Care Everywhere program and may not contain all information available regarding this patient. Last updated 17.[facility] Allergies No known active allergies Medications * [...] (130 lb) 07/20/2019 10:55 AM CD[place] [facility] [place] 168 cm (5' 6.14) 07/05/2019 8:27 [...] patient's age to complete this topic Insurance [facility] Care Teams Certified Appliance Service Technician Relationship Specialty Start Date End Date Maria Esther Lyon MD [address] [place] [address] [place] [id number] PCP - General Pediatrics 08/26/17 Sylvia Mendoza MD [address] [place] [address] [place] [id number] Orthopedic Surgery 06/15/19
--- OUTSIDE RECORDS SUMMARY | 2024-12-19 18:54 | XMS_ITS | Encounter Summary ---
Author Organization [facility] Address [facility] [place] [address] Care Team Providers Care Process Machine Operator Name Role Phone Lizzy Young NP Primary Care Provider [phone] Encounter Details Date Type Department Care Team (Late st Contact Info) Description 08/30/2024 MyChart Message [facility] [address] [place] [address] Lizzy Young NP [address] [place], [place] [id number] test results Social History Tobacco Use Types Packs/Day Years Used Date Smoking Tobacco: Never Smokeless Tobacco: Never Alcohol Use Standard Drinks/Week Comments Yes 0 (1 standard drink = 0.6 oz pur e alcohol) socially PHQ-2 Answer Date Recorded Patient Health Questionnaire-2 Score 0 08/06/2024 Comments No Sex and Gender Information Value Date Recorded Sex Assigned at Female 04/07/2024 9:34 AM WAFER CUTTER Legal Sex Female 10:48 AM CDT Gender Identity Female 04/07/2024 11:53 AM WAFER CUTTER Sexual Orientation Straight 04/07/2024 11 :53 AM WAFER CUTTER documented as of this encounter Plan of Treatment Upcoming Encounters Date Type Department Care Team (Late st Contact Info) Description 12/24/2024 12:00 PM WAFER CUTTER Office Visit [facility] [address] [place] [address] Hannah, Lizzy N, SOLE STITCHER HAND [address] [place] [address] documented as of this encounter Visit Diagnoses Not on filedocumented in this encounter Care Teams Process Machine Operator Relationship Specialty Start Date End Date Lizzy Young SOLE STITCHER HAND [address] [place] [address] PCP - General NURSE PRACTITIONER 10/23/23 documented as of this encounter
--- OUTSIDE RECORDS SUMMARY | 2024-12-19 18:54 | XMS_ITS | Data Portability ---
Author Organization [facility] Address [address] [place] [address] [place] [address] Care Team Providers Care Tar And Ammonia Pump Operator Name Role Phone JER ALFONSO Primary Care Provider [phone] Assessment Encounter Date Assessment Date Assessment LastModified by Organization Details LastModified Time 05/11/2024 05/11/2024 Annual gynecological exam performed. Patient will come back in a year unless there are new symptoms. [email or web address] Not available 2024 10:24:30 Plan of Treatment Reminders Order Date Submit Date Provider Last Modified By Organization Details Last Modified Time Details Appointments None recorded. Lab unlisted lab - women's health swab plus, JIM 2024 025 [facility] (Lab), [address] , [place], [address], 5 06:53:41 urinalysis, dipstick 2024 025 [email or web address] [place], [facility] [address], [address], [place], [address], 16:50:01 culture, urine 2024 025 [facility] (Lab), [address], [place], [address], 5 06:53:41 CT RNA, qual, PCR, unspecified specimen 2024 025 [facility] (Lab), [address] [facility], [place], [address], 5 16:40:57 urinalysis, dipstick [address], [address], [address], [place], [address], 16:42:39 culture, urine 2024 025 [facility] (Lab), [address] [facility], [place], [address], 5 10:35:18 pap, IG + reflex HPV if ASC-U - if hpv positive run subtyping 16, 18/45 add gc/chlam/tr ich 2024 025 [facility] (Lab), [address] [facility], [place], [address], 5 10:35:17 Referral None recorded. Procedures None recorded. Surgeries None recorded. Imaging None recorded. Medication Orders ceftriaxone 500 mg solution for injection [email or web address] [place] [address] [id number], [address], [place], [id number], 10:45:22 metronidazo le 0.75 % (37.5 mg/5 gram) vaginal gel [address] [facility], [address], [place], [id number], 5 16:49:50 Bactrim DS 800 mg-160 mg tablet 2024 025 [facility]56, [address], [place], [id number], 09:46:33 Patient TargetsNo targets recorded. 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 Not Available [facility] (Lab) [address] [facility], [place], [address], 05/18/2024 10:35:17 05/12/19 25 05/11/2024 TRICH OMONA S VAGIN LEAH (RRNA ) trichomonas vaginalis ribosomal RNA (rrna) Negati ve negati ve Not Available [facility] (Lab) [address] [place], [address], 05/18/2024 10:35:18 05/12/19 25 05/11/2024 CULTU RE: URINE result report SEE RESULT S BELOW Test: Cultu re: Urine Speci men Sourc e: Urine - Clean Catch Speci men Type: Urine Speci men Date: 2024 1543 Resul t Date: 2024 0632 Resul t Statu s: Final resul t Abnor mal: No Resul ting Lab: [facility] [address] [facility] [address] Tel: CULTU RE ----- ----- ----- --- No growt h in 1 day (dete ction level of 10,00 0 colon ies / ml.) Not Available [facility] (Lab) [address] [place], [address], 05/18/2024 10:35:18 05/12/19 25 05/11/2024 CT/GC (YELENA) , THINP REP VIAL chlamydia trachomatis, PCR Positi ve negati ve abnormal Posit elodia: Prese nce of C. trach omati s (by YELENA) Chlam tetoa trach omati s RNA detec bradly by PCR. Not Available [facility] (Lab) [address] [facility], [place], [address], 05/18/2024 10:35:19 05/12/1905/11/2024 CT/GC (YELENA) , THINP REP VIAL neisseria gonorrhoeae, PCR Negati ve negati ve Not Available [facility] (Lab) [address] [facility], [place], [address], 05/18/2024 10:35:19 05/12/1905/11/2024 urina lysis , dipst ick Leukocytes - Not Available [facility] [address], [place], [address], 05/11/2024 16:40:18 05/12/1905/11/2024 urina lysis , dipst ick Nitrite - Not Available [place] [address], [place], [address], 05/11/2024 16:40:18 05/12/1905/11/2024 urina lysis , dipst ick Urobilinogen - Not Available [facility] shirley [address], [place], [address], 05/11/2024 16:40:18 05/12/19 25 05/11/2024 urina lysis , dipst ick Protein trace Not Available [place] [address], [place], [address], 05/11/2024 16:40:18 05/12/1905/11/2024 urina lysis , dipst ick pH 9 Not Available [place] [address], [place], [address], 05/11/2024 16:40:18 05/12/1905/11/2024 urina lysis , dipst ick Specific Ulster 1.005 [facility] Available [facility] [address], [place], [address], 05/11/2024 16:40:18 05/12/19 25 05/11/2024 urina lysis , dipst ick Ketone - Not Available [place] [address], [place], [address], 05/11/2024 16:40:18 05/12/19 25 05/11/2024 urina lysis , dipst ick Bilirubin - Not Available [facility] [address], [place], [address], 05/11/2024 16:40:18 05/12/19 25 05/11/2024 urina lysis , dipst ick Glucose - Not Available [place] [address], [place], [address], 05/11/2024 16:40:18 05/12/19 25 05/11/2024 urina lysis , dipst ick Appearance cloudy Not Available [facility] [address], [place], [address], 05/11/2024 16:40:18 05/12/19 25 05/11/2024 urina lysis , dipst ick Color light yellow Not Available [place] [address], [place], [address], 05/11/2024 16:40:18 07/14/19 25 07/13/2024 CHLAM YHEIDIA TRACH OMATI S (YELENA) , URINE chlamydia trachomatis, PCR Negati ve negati ve Not Available [facility] (Lab) [address] [facility], [place], [address], 07/14/2024 16:40:57 08/04/19 25 08/03/2024 CULTU RE: URINE result report SEE RESULT S BELOW Test: Cultu re: Urine Speci men Sourc e: Urine - Midst ream Speci men Type: Urine Speci men Date: 2024 1645 Resul t Date: 20249 Resul t Statu s: Final resul t Abnor mal: No Resul ting Lab: [facility] [address] [facility] [address] Tel: CULTU RE ----- ----- ----- --- No growt h in 1 day (dete ction level of 10,00 0 colon ies / ml.) Not Available [facility] (Lab) [address] [place], [address], 08/06/2024 06:53:41 08/04/19 25 08/03/2024 WOMEN 'S HEALT H SWAB PLUS, JIM bacterial vaginosis (bv), tma Positi ve negati ve abnormal Not Available [facility] (Lab) [address] [place], [address], 08/06/2024 06:53:41 08/04/19 25 08/03/2024 WOMEN 'S HEALT H SWAB PLUS, JIM noam species, tma Negati ve negati ve Not Available [facility] (Lab) [address] [place], [address], 08/06/2024 06:53:41 08/04/19 25 08/03/2024 WOMEN 'S HEALT H SWAB PLUS, JIM noam glabrata, tma Negati ve negati ve Not Available [facility] (Lab) [address] [place], [address], 08/06/2024 06:53:41 08/04/19 25 08/03/2024 WOMEN 'S HEALT H SWAB PLUS, JIM trichomonas vaginalis, tma Negati ve negati ve Not Available [facility] (Lab) [address] [place], [address], 08/06/2024 06:53:41 06/1708/03/2024 WOMEN 'S HEALT H SWAB PLUS, JIM chlamydia trachomatis, PCR Positi ve negati ve abnormal Posit elodia: Prese nce of C. trach omati s (by YELENA) Chlam ydia trach omati s RNA detec bradly by PCR. Not Available [facility] (Lab) [address] [facility], [place], [address], 08/06/2024 06:53:41 08/04/1908/03/2024 WOMEN 'S HEALT H [...] ded in this panel . Not Available [facility] (Lab) [address], [place], [address], 08/06/2024 06:53:41 08/04/19 25 08/03/2024 urina lysis , dipst ick Leukocytes - Not Available Shaji villalta [address], [place], [address], 08/03/2024 16:34:34 08/04/19 25 08/03/2024 urina lysis , dipst ick Nitrite - Not Available [place] [address], [place], [address], 08/03/2024 16:34:34 08/04/19 25 08/03/2024 urina lysis , dipst ick Urobilinogen - Not Available [facility] sh[address]ley [address], [place], [address], 08/03/2024 16:34:34 08/04/19 25 08/03/2024 urina lysis , dipst ick Protein trace Not Available [place] [address], [place], [address], 08/03/2024 16:34:34 08/04/19 25 08/03/2024 urina lysis , dipst ick pH 5 Not Available [place] [address], [place], [address], 08/03/2024 16:34:34 08/04/19 25 08/03/2024 urina lysis , dipst ick Specific Ulster 1.[address] [facility] [address], [place], [address], 08/03/2024 16:34:34 08/04/19 25 08/03/2024 urina lysis , dipst ick Ketone - Not Available [place] [address], [place], [address], 08/03/2024 16:34:34 08/04/19 25 08/03/2024 urina lysis , dipst ick Bilirubin - Not Available [facility] liudmila [address], [place], [address], 08/03/2024 16:34:34 08/04/19 25 08/03/2024 urina lysis , dipst ick Glucose - Not Available [place] [address], [place], [address], 08/03/2024 16:34:34 08/04/19 25 08/03/2024 urina lysis , dipst ick Appearance cloudy Not Available Sh[facility] ambar [address], [place], [address], 08/03/2024 16:34:34 08/04/19 25 08/03/2024 urina lysis , dipst ick Color yellow Not Available [place] [address], [place], [address], 08/03/2024 16:34:34 Result Notes None recorded. Procedures Surgical History Date Name Laterality Status Provider Name and Address Organization Details Recorded Time 05/12/19 25 Date of Last Pap Smear completed Evelia Alexandra [facility] 07/13/2024 17:05:37 02/04/20 24 IUD Insertion completed Helena Schultz [facility] 02/04/2024 18:20:35 11/18/19 24 IUD Insertion completed Jono Arreaga MD [address], [place], [address], [facility] 12/17/2023 19:44:35 02/17/19 21 extraction of wisdom tooth completed Jen Victor [facility] 08/11/2023 10:21:32 02/17/19 20 operative procedure on foot completed Jen Victor [facility] 08/11/2023 10:21:08 02/17/19 20 operative procedure on foot completed Jen Victor [facility] 08/11/2023 10:21:22 Imaging Results None recorded. [...] Not Available Not Available No t Available [facility] a 11/17 completed Not Available Not Available [...] Updated DateTime 05/11/2024 167.64 cm 29.4 kg/m2 63083.81 g 126/81 mm[Hg] [facility] 05/11/2024 16:24:08 Date Recorded Body height Body mass index (BMI) Body weight Systolic And Diastolic Provider Name and Address Organization Details Last Updated DateTime 07/13/2024 167.64 cm 28.7 kg/m2 29603.44 g 111/71 mm[Hg] [facility] 07/13/2024 17:00:16 Date Recorded Body height Body mass index (BMI) Body weight Systolic And Diastolic Provider Name and Address Organization Details Last Updated DateTime 08/03/2024 167.64 cm 28.7 kg/m2 62091 g 115/76 mm[Hg] [facility] 08/03/2024 16:10:07 Date Recorded Body height Body mass index (BMI) Body weight Systolic And Diastolic Provider Name and Address Organization Details Last Updated DateTime 08/10/2024 167.64 cm 28.7 kg/m2 44939 g 133/77 mm[Hg] Evelia Alexandra [facility] 08/10/2024 10:43:48 Date Recorded Body height Body mass index (BMI) Body weight Systolic And Diastolic Provider Name and Address Organization Details Last Updated DateTime 02/04/2024 167.64 cm 28.2 kg/m2 56227.66 g 122/78 mm[Hg] Helena Schultz [facility] 02/04/2024 18:21:20 Social History Question Answer Notes LastModified by Organizat ion Details LastModified Time Tobacco Smoking Status Never Smoker [facility] 09/17/2022 18:25:56 Are You Blind Or Do You Have Difficulty Seeing? No [email or web address] Information n ot available 08/11/2023 What Is Your Level Of Caffeine Consumption? Occasional [email or web address] Information not available 07/13/2024 How Much Tobacco Do You Chew? None Information not available 07/13/2024 In The 14 [...] Do You Have Serious Difficulty Hearing? No [email or web address] Information not available 08/11/2023 What Type Of Diet Are You Following? REGULAR Information n ot available 08/11/2023 What Is The Highest Grade Or Level Of School You Have Completed Or The Highest Degree You Have Received? [id number] [email or web address] Information not available 05/11/2024 Are There Any Guns Present In Your Home? No Information not available 07/13/2024 Do You Use Protection During Sex? Usually [email or web address] Information not available 05/11/2024 Do You Use Your Seat Belt Or Car Seat Routinely? Yes [email or web address] Information not available 07/13/2024 Do You Have Smoke And Carbon Monoxide Detectors In Your Home? Yes [email or web address] Information not available 08/11/2023 How Much Tobacco Do You Smoke? No [email or web address] Information not available 07/13/2024 Do You Use Sunscreen Routinely? Yes [email or web address] Information not available 08/11/2023 Has Tobacco Cessation Counseling Been Provided? No [email or web address] Information not available 08/11/2023 Have You Used IV Drugs? No [email or web address] Information not available 05/11/2024 Do You Have Difficulty Walking Or Climbing Stairs? No Information not available 08/11/2023 Sex: Female Functional Status Question Answer Note LastModified by Organizat ion Details LastModified Time Do you use any illicit or recreational drugs? No Information not available 09/17/2022 Do you or have you ever used any other forms of tobacco or nicotine? No [email or web address] Information not available 08/11/2023 What is your level of alcohol consumption? Occasional [email or web address] Information not available 07/13/2024 Are you able to care for yourself independently? 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 No [email or web address] Information not available 08/11/2023 What is your exercise level? Moderate [email or web address] Information not available 07/13/2024 Mental Status Question Answer Note LastModified by Organization D etails LastModified Time Do you feel stressed (tense, restless, nervous, or anxious, or unable to sleep at night)? [id number] Information not available 08/11/2023 Family History Relationship [...] ) N Other N Blood Transfusion N Drug/Latex Allergies/Reactions N Breast Cancer N Dermatologic Disorders N Lung Disease N Defects or Inherited Disease N Breast Problem N Gestational Diabetes N Hematologic disorders N Anesthesia Complications N History of STI Y Deep Vein Thrombosis N Polycystic ovary syndrome N Anxiety Disorder N Autoimmune disease N Arthritis N Infertility N Polyps N Acid Reflux (GERD) N History of abnormal pap N Cancer N Stroke N Varicosities N Neurologic/Epilepsy N Endometriosis N High Cholesterol N Headaches N Fibromyalgia N Kidney Disease N Heart Problems N Kidney or Bladder Problems N Thyroid Problems N GI Problems N Eating Disorder [...] ICD10 Code Diagnosis IMO Codes Diagnosis Note [id number] Ayesha Howell , [facility] [address] [address] 09/17/2022 17:57:36 09/19/2022 10:42:10 Recurrent urinary tract infection 125336455 N39.0 Today we discussed use of Macrobid [...] and review of plan of care. Vaginitis 54996917 N76.0 Exam +vag d/cSwab sentSTD sentWill reach out with results. [id number] [facility] [address] [address] 11/06/2022 17:47:02 11/07/2022 12:59:33 Vaginitis 49884159 N76.0 Exam +vag d/c; treated for possible BVSTD sentWill reach out with results. Time spent in visit is a total of 15 mins with at least 50% of visit consisting of counseling and review of plan of care. Venereal d isease screening 923565899 Z11.3 IGNACIO sent todayPartn er treated [id number] Jono Arreaga MD [place] [address],[place] [address] 08/11/2023 09:56:49 08/12/2023 11:00:38 Irregular periods 10242572 N92.6 23-year-ol d female with irregular bleeding. [...] was counseling . Leukocytes in urine 2757 77351 R82.79 Bacterial vaginosis 4197 31923 N76.0 [id number] Jono Arreaga MD [place] [address],[place] [address] 11/18/2023 11:43:00 11/19/2023 09:32:42 Insertion of intrauterine contraceptive device 09628215 Z30.430 IUD inserted without complicati ons. She tolerated well. [id number] ADAN OLSON MD [place] [address],[place] [address] 12/01/2023 12:00:08 12/01/2023 12:33:02 Urinary symptoms 608284380 R39.9 Urinary tr act infectious disease 31642133 N39.0 [id number] Jono Arreaga MD [place] [address],[place] [address] 02/04/2024 18:10:52 02/05/2024 10:58:13 Contraception care management 523846409 Z30.9 This patient is a female who presents for IUD check. She had a Mirena IUD inserted [facility] 1 month ago. She has complaint of episodic light bleeding and occasional severe cramps. She denies any excessive bleeding or pain. She has had some cramping and some spotting. Otherwise, she feels that is going well and wants to continue her IUD. we agreed to observe her symptoms and consider remediatio n these problems persist. [id number] Jono Arreaga MD [place] [address],[place] [address] 05/11/2024 16:03:55 05/11/2024 16:49:21 Urinary symptoms 407172601 R39.9 Patient presents with symptoms of UTI. [...] week if not improving. Gynecologi c examination 94249266 Z01.419 Annual gynecologi abi exam performed. Patient [...] to 5 years. Venereal d isease screening 293989291 Z11.3 Pt requested STI testing.Di scussed the various types of STDs, related symptoms and the potential consequenc es (including effects on fertility) of STD infections . Reviewed ways to limit exposure and prevention techniques . [id number] Jono Arreaga MD [place] [address] [address] 07/13/2024 16:53:52 07/13/2024 17:18:55 Chlamydia trachomatis infection 561221965 A56.8 [id number] Urine sample collected to test for chlamydia after being treated with doxycyclin e 7 weeks ago. Discussed the various types of STDs, related symptoms and the potential consequenc es (including effects on fertility) of STD infections . Reviewed ways to limit exposure and prevention techniques . [id number] Jono Arreaga MD [place] [address] [address] 08/03/2024 15:54:57 08/03/2024 16:37:18 Vaginal discharge 339521701 N89.8 71508 Discussed empirical treatment with metronidaz ole for suspected BV based on reported symptoms and physical exam findings.D iscussed vulvar care guidelines in addition to laundry/sk in irritants to avoid.Sajnu mmended boric acid capsules - insert one capsule vaginally at H.S. after period, intercours e, and/or with symptoms.R ecommended daily probiotic pill for vaginal health.Vag initis panel sent to r/o trich/yeas t/BV Venereal d isease screening 890121096 Z11.3 707948 Pt requested STI testing.Di scussed the various types of STDs, related symptoms and the potential consequenc es (including effects on fertility) of STD infections . Reviewed ways to limit exposure and prevention techniques . Cloudy urine 6498165 R82 .90 9742291 Urine dipstick negative. Patient c/o cloudy urine.Will send culture to r/o infection. Irregular periods 521486 07 N92.6 [id number] Discussed that irregular spotting can occur with an IUD. Will r/o infectious cause with Nuswab.Pat ient will follow-up if bleeding irregulari ty persists. [id number] Jono Arreaga MD [place] [address] [address] 08/10/2024 09:53:07 08/10/2024 10:47:34 Sexually transmitted infectious disease 4929231 A64 51504 Health Concerns Section Related Observation LastModified by Organization Detai ls LastModified Time None Recorded Concern Status LastModified by Organization Details LastModified Time None Recorded Advance Directives Directive None Recorded Payers Insurance Date Sequence Insurance Name Policy Number Policy Torres Covered Member ID Torres Member ID Guarantor Name 08/26/2024 1 [employer] (POS) [id number] Vikki Jay [id number] Vikki Jay 05/11/2024 1 *SELF PAY* Jeannette Jay 07/13/2024 1 [facility] [id number] Vikki Jay [id number] Vikki Jay 08/26/2024 1 *SELF PAY* Jeannette Jay 07/13/2024 1 [facility] - DOS ON OR AFTER 20 (MEDICAID REPLACEMENT - HMO) Vikki Jay [id number] Vikki Jay Notes Date Note Type Note [...] persist. Jono Arreaga MD [address], [place], [address], [facility] 02/04/2024 18:50:22 5 text/html Annual GYNReported [...] testing. MATILDE GOOD NP [address], [place], [address], [facility] 05/11/2024 16:45:20 5 text/html 24 y/o female presents for chlamydia test of cure.Patient states that she took the doxycycline as prescribed and has not had unprotected intercourse since being treated. MATIDLE GOOD NP [address], [place], [address], [facility] 07/13/2024 17:17:30 5 text/html 24 y/o female presents light spotting for the past week which is the second period in one month, has Kyleena IUD and usually has only one period per month.Patient also c/o vulvar itching, cloudy urine, and vaginal odor x 2 days.Neg pain of abd/pelvis/flankNeg GI sx'sNeg N/V/F/C/D Evelia puckett, [facility] 08/03/2024 16:53:44 OBGyn Episode No OBEpisode recorded.
--- OUTSIDE RECORDS SUMMARY | 2024-12-19 18:54 | XMS_ITS | Encounter Summary ---
Author Organization [facility] Address [facility]ly [facility] [place] [address] Care Team Providers Care Turret Lathe Tender Name Role Phone Lizzy Young MATHEMATICAL SCIENCES PROFESSOR Primary Care Provider [phone] Lizzy Young MATHEMATICAL SCIENCES PROFESSOR Primary Care Provider [phone] Encounter Details Date Type Department Care Team (Late st Contact Info) Description 08/13/2023 [facility] [place] [address] [place], [place] [address] [employer], [employer] Provider Appt Social History Tobacco Use Types Packs/Day Years Used Date Smoking Tobacco: Never Smokeless Tobacco: Never Alcohol Use Standard Drinks/Week Comments Yes 0 (1 standard drink = 0.6 oz pur e alcohol) socially PHQ-2 Answer Date Recorded Patient Health Questionnaire-2 Score 0 07/23/2023 Comments No Sex and Gender Information Value Date Recorded Sex Assigned at Female 04/07/2024 9:34 AM SAFETY SCIENTIST Legal Sex Female 10:48 AM CDT Gender Identity Female 04/07/2024 11:53 AM SAFETY SCIENTIST Sexual Orientation Straight 04/07/2024 11 :53 AM SAFETY SCIENTIST documented as of this encounter Plan of Treatment Upcoming Encounters Date Type Department Care Team (Late st Contact Info) Description 12/24/2024 12:00 PM SAFETY SCIENTIST [facility] [place] [address] [place], [place] [id number] Lizzy Young MATHEMATICAL SCIENCES PROFESSOR [address] [place] [address] documented as of this encounter Visit Diagnoses Not on filedocumented in this encounter Care Teams Turret Lathe Tender Relationship Specialty Start Date End Date Lizzy Young, MATHEMATICAL SCIENCES PROFESSOR [address] [place] [address] PCP - General NURSE PRACTITIONER 07/21/23 08/27/23 Lizzy Young, MATHEMATICAL SCIENCES PROFESSOR [address] [place] [address] PCP - General NURSE PRACTITIONER 10/23/23 documented as of this encounter
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
[2024-12-19 19:10] VITALS: BP 151/97; PULSE 97; RESP 16; TEMP 37.2; O2SAT 99
--- OUTSIDE RECORDS SUMMARY | 2024-12-19 21:27 | XMS_ITS | Clinical Summary ---
Author Organization [facility] Address [place] [address] Care Team Providers Care Flight Operation Coordinator Name Role Phone Lizzy Young LAUNDRY ROOM ATTENDANT Primary Care Provider [phone] Allergies No known active allergies Medications ketoconazole [...] [facility] [place] [address] [place] [address] Lizzy Young, LAUNDRY ROOM ATTENDANT Cough 12/15/2024 Travel 12/10/2024 Telephone [facility] [place] [address] [place] [address] Lizzy Young, LAUNDRY ROOM ATTENDANT Medication Request 12/03/2024 1:40 PM CDT Office Visit [facility] & Internal [facility] [address] [place] [address] Lemuel Diaz PA URI (Pt c/o cough and chest congestion X 6 days) 12/03/2024 Travel 10/05/2024 Telephone [facility] [place] [address] [place] [address] Lizzy Young, IRWIN Record Request 09/23/2024 Results [facility] [place] [address] [place], [place] [id number] Lizzy Young, IRWIN URINALYSIS, URINE BACTERIA CULTURE 09/22/2024 11:40 AM CDT [facility] [place] [address] [facility] [address] [place], [place] [id number] Lizzy Young, IRWIN UTI (Patient has been [...] - 09/22/2024 11:59 PM CDT Hospital Encounter [facility] [place] [address] Lizzy Young, LAUNDRY ROOM ATTENDANT Discharge Disposition: Home or Self Care (Routine [...] Sex Assigned at Female 04/07/2024 9:34 AM HOTEL RECREATIONAL FACILITIES MANAGER Legal Sex Female 10:48 AM CDT Gender Identity Female 04/07/2024 11:53 AM HOTEL RECREATIONAL FACILITIES MANAGER Sexual Orientation Straight 04/07/2024 11 :53 AM HOTEL RECREATIONAL FACILITIES MANAGER Last Filed Vital Signs Vital Sign Reading [...] st Contact Info) Description 12/24/2024 12:00 PM HOTEL RECREATIONAL FACILITIES MANAGER Office Visit [facility] [place] [address] [place] [address] Lizzy Young, LAUNDRY ROOM ATTENDANT [address] [place] [address] Health Maintenance Due Date Last Done Comments [...] Hepatitis C Completed 10/24/2023, 07/23/2023 PHQ-2 (Physician [place]) Completed 08/06/2024 RSV Immunizations Under 20 Months [...] COLOR (U) ORANGE 09/22/2024 8:05 PM CDT [facility] Comment: INTERPRET DIPSTICK RESULTS WITH CAUTION. RESULTS MAY BE INACCURATE DUE TO COLOR OF URINE. TRANSPARENCY HAZY(A) CLEAR 09/22/2024 8:05 PM T [facility] SPECIFIC GRAVITY (U) 1.020 1.003 - 1.040 09/22/2024 8:05 PM T [facility] U PH 5.0 5.0 - 9.0 09/22/2024 8:05 PM T [facility] PROTEIN RANDOM (U) 1+(A) NEGATIVE 09/22/2024 8:05 PM T [facility] Comment: INTERPRET DIPSTICK RESULTS WITH CAUTION. RESULTS MAY BE INACCURATE DUE TO COLOR OF URINE. GLUCOSE (U) TRACE(A) NEGATIVE 09/22/2024 8:05 PM T [facility] Comment: INTERPRET DIPSTICK RESULTS WITH CAUTION. RESULTS MAY BE INACCURATE DUE TO COLOR OF URINE. KETONES MG/DL (U) TRACE(A) NEGATIVE 09/22/2024 8:05 PM T [facility] Comment: INTERPRET DIPSTICK RESULTS WITH CAUTION. RESULTS MAY BE INACCURATE DUE TO COLOR OF URINE. BILIRUBIN (U) 1+(A) NEGATIVE 09/22/2024 8:05 PM CDT [facility] Comment: INTERPRET DIPSTICK RESULTS WITH CAUTION. RESULTS MAY BE INACCURATE DUE TO COLOR OF URINE. BLOOD (U) NEGATIVE NEGATIVE 09/22/2024 8:05 PM CDT [facility] Comment: INTERPRET DIPSTICK RESULTS WITH CAUTION. RESULTS MAY BE INACCURATE DUE TO COLOR OF URINE. UROBILINOGEN >8.0(H) 0.0 - 2.0 EU/DL 09/22/2024 8:05 PM CDT [facility] Comment: INTERPRET DIPSTICK RESULTS WITH CAUTION. RESULTS MAY BE INACCURATE DUE TO COLOR OF URINE. NITRITES POSITIVE(A) NEGATIVE 09/22/2024 8:05 PM T [facility] Comment: INTERPRET DIPSTICK RESULTS WITH CAUTION. RESULTS MAY BE INACCURATE DUE TO COLOR OF URINE. LEUKOCYTES (U) 1+(A) NEGATIVE 09/22/2024 8:05 PM CDT [facility] Comment: INTERPRET DIPSTICK RESULTS WITH CAUTION. RESULTS MAY BE INACCURATE DUE TO COLOR OF URINE. RBC/HPF 0-3 0 - 3 /HPF 09/22/2024 8:05 PM T [facility] WBC/HPF 15-20(A) 0 - 3 /HPF 09/22/2024 8:05 [facility] EPI/HPF 4-9 /HPF 09/22/2024 8:05 PM CDT [facility] BACTERIA (U) TRACE(A) NONE SEEN 09/22/2024 8:05 PM CDT [facility] AMORPHOUS SEDIMENT PRESENT 09/22/2024 8:05 PM CDT [facility] URINE SPECIMEN OBTAINED BY CLEAN CATCH PROCEDURE / Unknown 09/22/2024 12:26 PM CDT us Lizzy N Hannah LAUNDRY ROOM ATTENDANT URINE ORDERABLES Final Resu [facility] [address] [place] [address], [place] [phone] * URINE BACTERIA CULTURE (09/22/2024 12:26 PM CDT) SPEC DESCRIPTION URINE CLEAN CATCH 09/22/2024 12:26 PM CDT [facility] SPECIAL REQUESTS NO SPECIAL REQUEST 09/22/2024 12:26 PM CDT [facility] CULTURE RESULT >50,000 TO 99,999 CFU/mL ESCHERICHIA COLI 09/25/2024 11:09 AM CDT [facility] URINE SPECIMEN OBTAINED BY CLEAN CATCH [...] MICROBIOLOGY - GENERAL CHRIS BURNS Final Result [facility] [address] [place] [address], [place] [phone] [id number] * HEPATITIS C ANTIBODY (10/24/2023 11:23 AM CDT) HEPATITIS C AB NON-REACTI VE NON-REACT FLAVIA 10/24/2023 9:41 PM CDT [facility] Comment: ANTIBODIES TO HCV NOT DETECTED. DOES NOT EXCLUDE THE POSSIBILITY OF EXPOSURE TO HCV. 10/24/2023 11:2 3 AM CDT Lizzy Young NP LABORATORY Final Resul t [facility] [address] [place] [address], [id number] from Last 3 Months or Most Recently Relevant to Health Maintenance Insurance [facility] Care Teams Flight Operation Coordinator Relationship Specialty Start Date End Date Lizzy Young, IRWIN [address] [facility] [facility] [address] [place] [address] PCP - General NURSE PRACTITIONER 10/23/23
--- OUTSIDE RECORDS SUMMARY | 2024-12-19 21:27 | XMS_ITS | Encounter Summary ---
Author Organization [facility] Address [facility] [place] [address] Care Team Providers Care On Air Host Name Role Phone Lizyz Young NP Primary Care Provider [phone] Encounter Details Date Type Department Care Team (Late st Contact Info) Description 08/30/2024 [facility] [place] [address] [place] [address] Lizzy Young NP [address] [place], [place] [id number] test results Social History Tobacco Use Types Packs/Day Years Used Date Smoking Tobacco: Never Smokeless Tobacco: Never Alcohol Use Standard Drinks/Week Comments Yes 0 (1 standard drink = 0.6 oz pur e alcohol) socially PHQ-2 Answer Date Recorded Patient Health Questionnaire-2 Score 0 08/06/2024 Comments No Sex and Gender Information Value Date Recorded Sex Assigned at Female 04/07/2024 9:34 AM TILE LAYER Legal Sex Female 10:48 AM CDT Gender Identity Female 04/07/2024 11:53 AM TILE LAYER Sexual Orientation Straight 04/07/2024 11 :53 AM TILE LAYER documented as of this encounter Plan of Treatment Upcoming Encounters Date Type Department Care Team (Late st Contact Info) Description 12/24/2024 12:00 PM TILE LAYER Office Visit [facility] [address] [place] [address] Hannah, Lizzy N, CLERICAL PROOFREADER [address] [place] [address] documented as of this encounter Visit Diagnoses Not on filedocumented in this encounter Care Teams On Air Host Relationship Specialty Start Date End Date Lizzy Young CLERICAL PROOFREADER [address] [place] [address] PCP - General NURSE PRACTITIONER 10/23/23 documented as of this encounter
--- OUTSIDE RECORDS SUMMARY | 2024-12-19 21:27 | XMS_ITS | Clinical Summary ---
Author Organization [facility] Address [address] [facility] [place] [address] Care Team Providers Care Fishing Rod Marker Name Role Phone Maria Esther Lyon MD Primary Care Provider [phone] Sylvia Mendoza MD Unavailable Unavailable Source Comments [facility],non-owned Affiliates and Associated Physician Practices is amultiple site organization consisting of ambulatory clinics and hospital sitesin [place], [place], [place] and [place]. This disclosure is being madepursuant to the Care Everywhere program and may not contain all information available regarding this patient. Last updated 17.[facility] Allergies No known active allergies Medications * [...] (130 lb) 07/20/2019 10:55 AM CDT [facility] Height 168 cm (5' 6.14) 07/05/2019 8:27 [...] patient's age to complete this topic Insurance [facility] Care Teams Fishing Rod Marker Relationship Specialty Start Date End Date Maria Esther Lyon MD [address] [place] [address] [place] [address] PCP - General Pediatrics 08/26/17 Sylvia Mendoza MD [address] [place] [address] [place] [id number] Orthopedic Surgery 06/15/19
[2024-12-19 21:36] VITALS: BP 109/79; O2SAT 100
--- NOTE | 2024-12-19 21:49 | ECG_ITS ---
Test Date: 2024-12-19 22:13:59 Measurements Intervals Guild Rate: 90 P: 53 MN: 144 QRS: 69 QRSD: 88 T: 36 QT: 333 QTc: 409 Interpretive Statements SINUS RHYTHM WITH SINUS ARRHYTHMIA No previous ECG available for comparison Electronically Signed On 12-20-2024 06:41:17 RN BARIATRIC by Dianne Dominguez M.D.
--- NOTE | 2024-12-19 21:55 | ED_ITS ---
HPI - URI/Sore Throat General Chief Complaint: Upper Respiratory Infection Stated Complaint: sob Time Seen by Provider: 12/19/24 21:01 History of Present Illness HPI Narrative: Patient is a 24-year-old female who presents to the ER with cough an asthma exacerbation. She reports she had a fever with a T-max of 100.4? earlier today. Patient reports she has been using her inhaler at home with no relief. She reports approximately 2 weeks ago she went to urgent care and was placed on a Z-Champ and Augmentin, along with the oral steroid. Patient reports her symptoms subsided but then returned shortly afterwards. She endorses wheezing, shortness of breath, and chest pain with cough. Patient denies any abdominal pain, urinary symptoms, or acute back pain. She endorses a history of asthma but denies any other pertinent medical history. Related Data Home Medications ?Medication ?Instructions ?Recorded ?Confirmed ?Last Taken ?Type albuterol 90 mcg-budesonide 80 2 inh inhalation TID MT N shortness 11/29/24 Unknown History mcg/actuation HFA aerosol inhaler of breath (Airsupra) Allergies Allergy/AdvReac Type Severity Reaction Status Date / Time No Known Allergies Allergy Severe Verified 11/29/24 18:45 Review of Systems 2 Review of Systems: All systems reviewed & are unremarkable except as noted in HPI and below PMFSH Past Medical History Medical History Asthma Dental caries Surgical History Surgical History History of placement of ear tubes H/O foot surgery Family History Family History Other No significant family history Social History Social History Smoking status: Never smoker Alcohol intake: never Substance use: never Living arrangements: with family Gender identity (if verbalized by the patient): Female Exam 2 Narrative: GENERAL: Well appearing, well-nourished, non-toxic, in no acute distress. HEAD: Normocephalic, atraumatic. NECK: Supple. No adenopathy, no masses. RESPIRATORY: Airway patent, respirations nonlabored. Diminished left lower lobe. No audible wheezing CARDIOVASCULAR: Regular rate and rhythm without murmurs, rubs, or gallops. Peripheral pulses 2+ and equal bilaterally. ABDOMINAL: Soft, nontender, nondistended, no hepatosplenomegaly. Normoactive BS. MUSCULOSKELETAL: Moves all extremities. Strength/ROM intact without gross deformities. SKIN: Warm, dry, normal color. No rashes. NEURO: A&O X3. Speech clear. Cranial nerves II-XII intact. No ataxic movements. PSYCHIATRIC: Appropriate mood and affect. Normal interaction. Course Vital Signs Vital signs: Vital Signs Temperature 37.2 C 12/19/24 19:10 Pulse Rate 97 12/19/24 19:10 Respiratory Rate 16 12/19/24 19:10 Blood Pressure 151/97 H 12/19/24 19:10 Pulse Oximetry 99 12/19/24 19:10 Oxygen Delivery Room Air 12/19/24 19:10 Temperature 37.2 C 12/19/24 19:10 Pulse Rate 112 H 12/19/24 22:37 Respiratory Rate 16 12/19/24 22:37 Blood Pressure 118/80 12/19/24 22:01 Pulse Oximetry 100 12/19/24 21:36 Oxygen Delivery Room Air 12/19/24 19:10 MDM - URI/Sore Throat MDM Narrative Medical decision making narrative: Patient is a 24-year-old female who presents to the ER with cough an asthma exacerbation. She reports she had a fever with a T-max of 100.4? earlier today. Patient reports she has been using her inhaler at home with no relief. She reports approximately 2 weeks ago she went to urgent care and was placed on a Z-Champ and Augmentin, along with the oral steroid. Patient reports her symptoms subsided but then returned shortly afterwards. She endorses wheezing, shortness of breath, and chest pain with cough. Patient denies any abdominal pain, urinary symptoms, or acute back pain. She endorses a history of asthma but denies any other pertinent medical history. Labs Ordered: CBC, CMP, D-dimer, magnesium, PTT, INR, COVID/flu/RSV Imaging Ordered: Chest x-ray Medications Ordered: 1 L normal saline IV bolus, Solu-Medrol IV, DuoNeb Results: Patient's chest x-ray indicates no acute abnormalities. Her lab work results are unremarkable. Diagnosis: Asthma, bronchitis Patient Education/Shared MDM: Results of lab work and imaging shared with patient. She endorses improvement of symptoms following medication administration. Patient strongly advised to maintain hydration status upon discharge and follow-up with her PCP as soon as possible. She will be discharged home with a prescription for Medrol Dosepak and Tessalon Pearles. Strict return precautions provided. Patient verbalized understanding and is in agreement with plan. Vital signs stable at time of discharge. All questions answered. Differential Diagnosis Differential diagnosis: Likely upper respiratory infection, viral infection and bronchitis Lab Data Attestation: I reviewed the patient's lab results. 12/19/24 21:58 12/19/24 21:58 Labs: Lab Results 12/19/24 12/19/24 12/19/24 Range/Units 20:17 21:58 22:17 WBC 10.4 H (4.5-10.0) K/mm3 RBC 4.24 (4.2-5.4) M/mm3 Hgb 12.7 (12.0-15.0) g/dL Hct 38.3 (37.0-47.0) % MCV 90.3 (80-100) fl MCH 30.0 (26-34) pg MCHC 33.2 (32-36) g/dl RDW 12.1 (11.5-14.5) % Plt Count 219 (150-375) k/mm3 MPV 10.1 (7.4-10.4) fl Immature Gran % (Auto) 0.3 (0-0.5) % Neut % (Auto) 72.0 (45.5-73.1) % Lymph % (Auto) 17.8 L (18.3-44.2) % Kerr % (Auto) 7.3 (2.6-8.5) % Eos % (Auto) 2.0 (0-4.4) % Baso % (Auto) 0.6 (0.2-1.2) % Lymph # (Auto) 1.85 (0.9-3.2) K/mm3 Kerr # (Auto) 0.8 H (0.1-0.6) K/mm3 Eos # (Auto) 0.2 (0-0.3) K/mm3 Baso # (Auto) 0.1 (0.0-0.1) K/mm3 Abs Immat Gran (auto) 0.03 (0.00-0.031) K/mm3 Absolute Neuts (auto) 7.5 H (1.3-6.7) K/mm3 Absolute Nucleated RBC 0.000 (0.0-0.012) K/mm3 Nucleated RBC % 0.0 (0.0-0.2) % PT 14.1 (11.1-14.7) Seconds INR 1.1 APTT 30.8 (22.3-36.8) Seconds D-Dimer < 0.27 (<0.48) ug/mL Sodium 139 (137-145) mmol/L Potassium 3.9 (3.4-5.0) mmol/L Chloride 106 (98-107) mmol/L Carbon Dioxide 26 (22-30) mmol/L Anion Gap 7 (4-12) mmol/L BUN 8 (7-17) mg/dL Creatinine 0.71 (0.7-1.0) mg/dL Estim Creat Clear Calc 113 ml/min Estimated GFR > 60 (59 - ) Glucose 108 (65-110) mg/dL Calcium 9.2 (8.4-10.2) mg/dL Magnesium 2.0 (1.6-2.3) mg/dL Total Bilirubin 0.5 (0.2-1.3) mg/dL AST 25 (14-36) U/L ALT 22 (6-35) U/L Alkaline Phosphatase 48 (38-126) U/L Total Protein 7.4 (6.3-8.2) g/dL Albumin 4.5 (3.5-5.1) g/dL POC Urine HCG, Qual Negative (Negative) Influenza A (RT-PCR) Negative (Negative) Influenza B (RT-PCR) Negative (Negative) RSV (RT-PCR) Negative (Negative) SARS-CoV-2 RNA (RT-PCR) Negative (Negative) Imaging Data Attestation: I personally reviewed and interpreted this imaging study as follows: Radiologist's impression: No indications cardiopulmonary abnormalities Discharge Plan Discharge Clinical Impression: Upper respiratory infection, Bronchitis Patient Disposition: Home Condition: Stable Instructions: Antibiotic Form, Acute Bronchitis (ED) Additional Instructions: Please return to the ER with any worsening symptoms. Follow-up with primary care provider as soon as possible for further evaluation and treatment. You may take Tessalon Perles as needed for cough treatment. Please take Tylenol and ibuprofen as needed for pain control. Patient Language: Armenian Prescriptions: New benzonatate 100 mg capsule 100 mg PO TID Qty: 30 0RF methylprednisolone [Medrol (Champ)] 4 mg tablets,dose pack See Rx Instructions .ROUTE .COMPLEX Qty: 21 0RF Rx Instructions: for 6 days No Action Airsupra 90-80 mcg/actuation HFA aerosol inhaler 2 inh inhalation TID PRN (Reason: shortness of breath) Airsupra 90-80 mcg/actuation HFA aerosol inhaler 2 inh inhalation QID 30 Days Qty: 10.7 0RF Rx Instructions: may use up to 6 doses per day (12 inhalations) fluticasone propionate 50 mcg/actuation spray,suspension 2 spray intranasal DAILY 30 Days Qty: 16 0RF Rx Instructions: administer into each nostril montelukast 10 mg tablet 10 mg PO HS 30 Days Qty: 30 0RF albuterol sulfate 90 mcg/actuation HFA aerosol inhaler 2 inh inhalation Q4-6H PRN (Reason: shortness of breath or wheezing) Qty: 8.5 0RF acetaminophen 500 mg tablet 1,000 mg PO TID PRN (Reason: adolph) 7 Days Qty: 42 0RF ibuprofen 800 mg tablet 800 mg PO TID PRN (Reason: pain) 7 Days Qty: 21 0RF methocarbamol 750 mg tablet 1,500 mg PO TID Qty: 35 0RF Follow-up/Referrals: UNKNOWN,DOCTOR [Primary Care Provider] Stand Alone Forms: Work/School Release IP Time of Disposition: 01:24
[2024-12-19 22:01] VITALS: BP 118/80; PULSE 115; RESP 23
[2024-12-19 22:12] LABS: Influenza A QL RT-PCR Negative (Negative); Influenza B QL RT-PCR Negative (Negative); RSV RNA, RT-PCR Negative (Negative); SARS-CoV-2 RNA PCR Negative (Negative)
[2024-12-19 22:18] LABS: BEDSIDEPREGUCG Negative (Negative)
[2024-12-19] MEDS: SODIUM CHLORIDE 0.9% IV 1,000 ML 999 ML IV CONT (22:19)
[2024-12-19 22:28] LABS: Hematocrit 38.3 % (37.0-47.0); Hemoglobin 12.7 g/dL (12.0-15.0); Immature Granulocyte Percent A 0.3 % (0-0.5); Lymphocytes Absolute Auto 1.85 K/mm3 (0.9-3.2); Mean Corpuscular HGB Conc 33.2 g/dl (32-36); Mean Corpuscular Hemoglobin 30.0 pg (26-34); Mean Corpuscular Volume 90.3 fl (80-100); Nucleated Red Blood Cells Absolute Auto 0.000 K/mm3 (0.0-0.012); Nucleated Red Blood Cells Perc 0.0 % (0.0-0.2); Platelet Count Result 219 k/mm3 (150-375); Red Blood Count 4.24 M/mm3 (4.2-5.4); White Blood Count 10.4 K/mm3 (4.5-10.0)
[2024-12-19 22:37] VITALS: PULSE 112; RESP 16
[2024-12-19] MEDS: IPRATROPIUM 0.5 MG/ALBUTEROL SULFATE 2.5 MG (BASE) AMPUL.NEB 3 ML INHALATION ×3 (22:37→23:18)
[2024-12-19 22:41] LABS: Partial Thromboplastin Time 30.8 Seconds (22.3-36.8)
[2024-12-19 22:42] LABS: INR 1.1; Prothrombin Time 14.1 Seconds (11.1-14.7)
[2024-12-19 22:43] LABS: Alanine Aminotransferase 22 U/L (6-35); Albumin Level 4.5 g/dL (3.5-5.1); Alkaline Phosphatase 48 U/L (38-126); Anion Gap 7 mmol/L (4-12); Aspartate Amino Transferase 25 U/L (14-36); Bilirubin,Total 0.5 mg/dL (0.2-1.3); Blood Urea Nitrogen 8 mg/dL (7-17); Calcium 9.2 mg/dL (8.4-10.2); Carbon Dioxide 26 mmol/L (22-30); Chloride 106 mmol/L (98-107); Estimated CRCL calculation 113 ml/min; Estimated Glomerular Filt Rate > 60; Glucose 108 mg/dL (65-110); Magnesium 2.0 mg/dL (1.6-2.3); Potassium 3.9 mmol/L (3.4-5.0); Sodium 139 mmol/L (137-145); Total Protein 7.4 g/dL (6.3-8.2)
[2024-12-20] MEDS: PROMETHAZINE/CODEINE (*CRX) 5 ML SYRUP PO (01:46)
== END 2024-12-20 01:51 | disposition home or self-care (01) ==
PROVIDERS: Student in an Organized Health Care Education/Training Program; Emergency Provider Registered Nurse
DX: J06.9 Acute upper respiratory infection, unspecified (principal); J45.909 Unspecified asthma, uncomplicated
CPT/HCPCS: 36415; 71045; 80053; 81025; 83735; 85025; 85380; 85610; 85730; 87637; 93005; 94640; 96361; 96374; 99284; A9270; J2919; J7030